=== PATIENT | female | born 1985 | race Caucasian/White ===

== ENCOUNTER 2016-11-26 00:31 | Inpatient (IN) | payer MEDICAID, OTHER ==
[~2016-11-26] VITALS: Ht 154.9 cm; Wt 55.0 kg
[2016-11-26] MEDS ORDERED: ONDANSETRON 4 MG INJ IV STA (01:06)
[2016-11-26] MEDS ORDERED: morphine 4 MG/ML VIAL IV STA (01:06)
--- NOTE | 2016-11-26 01:30 | ERA ---
ER Documentation Chief Complaint Date/Time DATE: 11/26/16 TIME: 01:29 Chief Complaint Tx from [facility]: cholecystitis, c/o AP, [place] HPI This is a 31-year-old female transferred from the [facility]. Patient diagnosed cholecystitis. She has had right upper quadrant abdominal pain for the past 2 days. Associated nausea vomiting. 2 episodes of vomiting which nonbilious. No fevers no chills. No other current complaints ROS All systems reviewed and are negative except as per history of present illness. Medications Home Meds No Active Prescriptions or Reported Meds Allergies Allergies: Coded Allergies: No Known Allergy (Unverified , 11/26/16) PMhx/Soc History of Surgery: No Anesthesia Reaction: No Hx Neurological Disorder: No Hx Respiratory Disorders: No Hx Cardiac Disorders: No Hx Psychiatric Problems: No Hx Miscellaneous Medical Probl: No Hx Alcohol Use: No Hx Substance Use: No Hx Tobacco Use: No Smoking Status: Never smoker Physical Exam Vitals Vital Signs Date Time Temp Pulse Resp B/P Pulse Ox O2 Delivery O2 Flow Rate FiO2 11/26/16 00:38 99.2 62 18 110/65 99 Physical Exam Const: [] Head: Atraumatic Eyes: Normal Conjunctiva ENT: Normal External Ears, Nose and Mouth. Neck: Full range of motion..~ No meningismus. Resp: Clear to auscultation bilaterally Cardio: Regular rate and rhythm, no murmurs Abd: Soft, non tender, non distended. Normal bowel sounds Skin: No petechiae or rashes Back: No midline or flank tenderness Ext: No cyanosis, or edema Neur: Awake and alert Psych: Normal Mood and Affect Results 24 hrs Current Medications Medications (Trade) Dose Ordered Sig/Alvin Route PRN Reason Start Time Stop Time Status Last Admin Dose Admin Ondansetron HCl (Zofran Inj) 4 mg ONCE STAT IV 11/26/16 01:06 11/26/16 01:11 DC 11/26/16 01:12 Morphine Sulfate (morphine) 4 mg ONCE STAT IV 11/26/16 01:06 11/26/16 01:11 DC 11/26/16 01:12 Procedures/MDM Medical decision-makin-year-old female with acute cholecystitis. Patient was admitted to hospitalist. Departure Diagnosis: Primary Impression: Abdominal pain Qualified Code: R10.11 - Right upper quadrant abdominal pain Additional Impression: Acute cholecystitis Condition: Serious RODRIGUE HURD November 26, 2016 01:30
[2016-11-26] MEDS ORDERED: HYDROmorphONE 1 MG/ML SYG IV PRN ×2 (02:30→05:30)
[2016-11-26] MEDS ORDERED: PIPER-TAZO 3.375 GM IV (PMX) 100 ML IVPB ONE (02:30)
[2016-11-26] MEDS: SOD CHLORIDE 0.9% 1,000 ML IV SCH ×2 (05:17→18:00)
[2016-11-26] MEDS ORDERED: HYDROmorphONE 1 MG/ML SYG IV STA ×2 (05:24→09:41)
[2016-11-26] MEDS ORDERED: NACL 0.9% 3 ML SYG IV SCH (05:30)
[2016-11-26 05:51] LABS: ADD SCAN DIFF NO
[2016-11-26 06:05] LABS: BASOPHIL # 0.1 10^3/ul (0.0-0.1); BASOPHILS % 0.3 % (0.0-2.0); EOSINOPHILS # 0.1 10^3/ul (0.0-0.5); EOSINOPHILS % 0.3 % (0.0-7.0); HEMATOCRIT 38.3 % (37.0-47.0); HEMOGLOBIN 12.6 g/dl (12.0-16.0); LYMPHOCYTES # 3.5 10^3/ul (0.8-2.9); LYMPHOCYTES % 24.5 % (15.0-51.0); MEAN CORPUSCULAR HEMOGLOBIN 28.8 pg (29.0-33.0); MEAN CORPUSCULAR HGB CONC 32.9 g/dl (32.0-37.0); MEAN CORPUSCULAR VOLUME 87.6 fl (82.0-101.0); MONOCYTE # 1.1 10^3/ul (0.3-0.9); MONOCYTES % 7.8 % (0.0-11.0); NEUTROPHIL # 9.5 10^3/ul (1.6-7.5); NEUTROPHILS % 66.8 % (39.0-77.0); PLATELET COUNT 193 10^3/UL (140-415); RED BLOOD COUNT 4.37 10^6/ul (4.20-5.40); RED CELL DISTRIBUTION WIDTH 13.2 % (11.5-14.5); WHITE BLOOD COUNT 14.3 10^3/ul (4.8-10.8)
[2016-11-26 06:12] LABS: INR 1.05; PROTIME 13.7 Sec (12.2-14.2); PT RATIO 1.1
[2016-11-26 06:26] LABS: PARTIAL THROMBOPLASTIN TIME 29.3 Sec (25.0-35.0)
[2016-11-26 06:33] LABS: ALBUMIN 4.1 g/dl (3.3-4.9)
[2016-11-26 06:34] LABS: POTASSIUM 3.5 mmol/L (3.5-5.1)
[2016-11-26 06:36] LABS: ALBUMIN/GLOBULIN RATIO 1.46; BILIRUBIN,INDIRECT 0.8 mg/dl (0-1.1); BILIRUBIN,TOTAL 0.8 mg/dl (0.2-1.3); CREATININE 0.66 mg/dl (0.44-1.00); TOTAL PROTEIN 6.9 g/dl (6.1-8.1)
[2016-11-26 06:37] LABS: CALCIUM 9.2 mg/dl (8.4-10.2)
--- NOTE | 2016-11-26 06:46 | HP ---
Date/Time of Note Date/Time of Note DATE: 11/26/16 TIME: 06:26 Assessment/Plan VTE Prophylaxis VTE Prophylaxis Intervention: SCD's Lines/Catheters IV [facility]ter [facility] (from [facility] Peripheral IV Assessment/Plan Chief Complaint/Hosp Course This is a 31-year-old female being admitted to [facility] floor: #1 acute cholecystitis: As per ED physician from outside facility ultrasound positive for acute cholecystitis, white blood cell count 14 continue to follow, patient currently n.p.o., IV fluids at 100 cc an hour of normal saline, Zosyn 3.375 IV every 6 hours, Dilaudid 0.5 mg every 4 hours as needed pain, consult general surgery. 2 DVT and GI prophylaxis, SCDs, H2 marcy Problems: HPI/ROS Admit Date/Time Admit Date/Time 11/25/2016 Hx of Present Illness This is a 31-year-old female transferred from [facility] She has had right upper quadrant abdominal pain for the past 2 days. Associated nausea vomiting. 2 episodes of vomiting which nonbilious. No fevers no chills. She states the pain is a stabbing pain 10 out of 10 gallbladder ultrasound as per the ED physician Dr. Cooper showed gallstones and gallbladder wall thickening. Patient was diagnosed with acute cholecystitis and subsequently transferred to [facility]. Currently patient is comfortable after having pain medications. Palpation of the right upper quadrant though does elicit pain. Allergies: NKDA Medications: None ROS Const: Negative for fever, positive for nausea vomiting Eyes : No pain discharge or redness or change in visual acuity ENT: No pain, sore throat, congestion, congestion, dysphagia or discharge Respiratory: No shortness of breath, cough, sputum, wheezing, or pleuritic pain Cardiovascular: No chest pain, palpitation, PND, or edema GI : As stated above in the HPI, otherwise negative Genitourinary: No dysuria, hematuria, flank pain , discharge or CVA tenderness Musculoskeletal: No joint pain, back pain, neck pain, restricted range of motion in neck or joints Skin: No rash, bruising or hives Neuro: No headache, dizziness, syncope, seizure, focal weakness Endocrine: No polyuria, polydipsia, temperature intolerance Psych: No hallucination, depression, anxiety or suicidal ideation PMH/Family/Social Past Medical History Medical History: no pertinent history Past Surgical History Tubal ligation 08/2016 Family History Significant Family History: cancer (Breast cancer in her aunt and grandmother) Social History Alcohol Use: none Smoking Status: Never smoker Drug Use: none Exam/Review of Systems Vital Signs Vitals Vital Signs Date Time Temp Pulse Resp B/P Pulse Ox O2 Delivery O2 Flow Rate FiO2 11/26/16 04:59 56 16 108/71 100 Room Air 11/26/16 02:15 98.8 Exam Exam General: The patient is well-developed, well-nourished woman in no acute The patient is alert oriented -3 HEENT: Atraumatic, normocephalic. The pupils are equal, round and reactive. Extraocular motor are intact Neck: Supple with full range of motion. No rigidity or meningismus Chest: Nontender Lungs: Clear to auscultation bilaterally no crackles rales or wheezing Heart: Normal S1-S2, Regular rhythm and rate. No murmur, S3, or S4 Abdomen: Soft, tender to palpation of the right upper quadrant (positive Holly sign), positive bowel sounds Extremities: Normal to inspection, no edema no cyanosis Neurologic: Normal mental status, speech normal, cranial nerves II through XII are intact, motor and sensory are intact, no focal weakness Labs Result Diagram: 11/26/16 0525 Medications Medications Current Medications Hydromorphone HCl 0.5 mg 0.5 mg Q4 PRN IV PAIN LEVEL 7-10 Last administered on 11/26/16 02:26; Admin Dose 0.5 MG; Start 11/26/16 at 02:30 Sodium Chloride (NS) 1,000 ml @ 100 mls/hr Q10H IV Last administered on 05:17; Admin Dose 100 MLS/HR; Start 11/26/16 at 05:03 Ondansetron HCl (Zofran Inj) 4 mg Q6H PRN IV NAUSEA AND/OR VOMITING; Start 11/26 at 05:30 Hydromorphone HCl (Dilaudid) 0.5 mg Q4H PRN IV SEVERE PAIN LEVEL 7-10; Start at 05:30 Famotidine 20 mg 20 mg Q12 IV ; Start 11/26/16 at 09:00 Piperacillin Sod/ Tazobactam Sod (Zosyn 3.375gm/ 100 ml (Pmx)) 100 ml @ 200 mls /hr Q6 IVPB ; Start 11/26/16 at 07:00 MARCOS HARRELL November 26, 2016 06:36
[2016-11-26] MEDS: PIPER-TAZO 3.375 GM IV (PMX) 100 ML IVPB SCH ×3 (07:29→18:03)
[2016-11-26] MEDS: HYDROmorphONE 1 MG/ML SYG IV PRN ×4 (07:31→22:02)
[2016-11-26] MEDS: FAMOTIDINE 20 MG INJ IV SCH ×2 (09:05→20:39)
--- NOTE | 2016-11-26 09:52 | CONS ---
Date/Time of Note Date/Time of Note DATE: 11/26/16 TIME: 09:52 Assessment/Plan Assessment/Plan Chief Complaint/Hosp Course 31F with right upper quadrant abdominal pain * No evidence of cholelithiasis or acute cholecystitis on ultrasound * 5mm polyp likely not cause of patient's symptoms. Can continue to monitor for now. * Differential diagnosis includes Gastroenteritis, Hepatitis, Gastritis, Peptic Ulcer Disease, etc. * Monitor labs * Continue NPO, IVF Hydration * Check Hepatitis Panel * Consider GI consult * Continue observation. If symptoms don't improve then recommend HIDA with CCK vs. CT Scan The above was discussed with the patient and primary care team. Further recommendations will be made based on clinical course. Problems: Consultation Date/Type/Reason Admit Date/Time 11/25/2016 Date of Consultation: November 26, 2016 Type of Consultation: GENERAL SURGERY Reason for Consultation ABDOMINAL PAIN Hx of Present Illness The patient is an otherwise healthy 31F who was transferred from [facility] where she presented with abdominal pain of 1 days duration. She describes the pain as being located in the right upper quadrant. It has been associated with multiple episodes of nausea and non-bilious emesis. She also reports diarrhea. There has been no fever/chills. She denies any prior episodes of similar pain in the past. A 14-point review of systems was conducted and negative except for HPI. Past Medical History Medical History: no pertinent history Past Surgical History Tubal Ligation Social History Alcohol Use: none Smoking Status: Never smoker Drug Use: none Exam/Review of Systems Vital Signs Vitals Vital Signs Date Time Temp Pulse Resp B/P Pulse Ox O2 Delivery O2 Flow Rate FiO2 11/26/16 06:30 98.3 62 16 114/68 100 Room Air Exam GENERAL: Awake, alert, oriented x 3. No acute distress. SKIN: No jaundice HEENT: No scleral icterus NECK: supple without JVD CARDIOVASCULAR: S1S2, regular rate and rhythm RESPIRATORY: clear to auscultation bilaterally ABDOMEN: soft, non-distended, bowel sounds present. Right upper quadrant tenderness to palpation without rebound or guarding. EXTREMITIES: no cyanosis, edema or clubbing NEUROLOGICAL: grossly intact Results Result Diagram: 11/26/16 0525 11/26/16 0525 Results 24 hrs Laboratory Tests Test 11/26/16 05:25 White Blood Count 14.3 H Red Blood Count 4.37 Hemoglobin 12.6 Hematocrit 38.3 Mean Corpuscular Volume 87.6 Mean Corpuscular Hemoglobin 28.8 L Mean Corpuscular Hemoglobin Concent 32.9 Red Cell Distribution Width 13.2 Platelet Count 193 Mean Platelet Volume 11.0 H Neutrophils % 66.8 Lymphocytes % 24.5 Monocytes % 7.8 Eosinophils % 0.3 Basophils % 0.3 Nucleated Red Blood Cells % 0.0 Neutrophils # 9.5 H Lymphocytes # 3.5 H Monocytes # 1.1 H Eosinophils # 0.1 Basophils # 0.1 Nucleated Red Blood Cells # 0.0 Prothrombin Time 13.7 Prothrombin Time Ratio 1.1 INR International Normalized Ratio 1.05 Activated Partial Thromboplast Time 29.3 Sodium Level 141 Potassium Level 3.5 Chloride Level 105 Carbon Dioxide Level 24 Anion Gap 16 Blood Urea Nitrogen 15 Creatinine 0.66 Glucose Level 100 Calcium Level 9.2 Total Bilirubin 0.8 Direct Bilirubin 0.00 Indirect Bilirubin 0.8 Aspartate Amino Transf (AST/SGOT) 33 Alanine Aminotransferase (ALT/SGPT) 36 Alkaline Phosphatase 50 Total Protein 6.9 Albumin 4.1 Globulin 2.80 Albumin/Globulin Ratio 1.46 Lipase 39 Medications Medications Current Medications Sodium Chloride (NS) 1,000 ml @ 100 mls/hr Q10H IV Last administered on 05:17; Admin Dose 100 MLS/HR; Start 11/26/16 at 05:03 Ondansetron HCl (Zofran Inj) 4 mg Q6H PRN IV NAUSEA AND/OR VOMITING; Start 11/26 at 05:30 Famotidine 20 mg 20 mg Q12 IV Last administered on 11/26/16 09:05; Admin Dose 20 MG; Start 11/26/16 at 09:00 Piperacillin Sod/ Tazobactam Sod (Zosyn 3.375gm/ 100 ml (Pmx)) 100 ml @ 200 mls /hr Q6 IVPB Last administered on 11/26/16 07:29; Admin Dose 200 MLS/HR; Start 11/26/16 at 07:00 Hydromorphone HCl (Dilaudid) 0.5 mg Q4H PRN IV PAIN LEVEL 7-10 Last administered on 11/26/16 07:31; Admin Dose 0.5 MG; Start 11/26/16 at 07:30 Procedures Procedures PROCEDURE: Ultrasound of the abdomen and retroperitoneum. CLINICAL INDICATION: Abdominal pain TECHNIQUE: Multiple real-time longitudinal and transverse images of the abdomen were acquired utilizing a curved array transducer. Images were reviewed on a high-resolution PACS workstation. COMPARISON: Abdominal ultrasound 03/27/2014 FINDINGS: The liver is normal in size, shape, and echogenicity. No hepatic masses are seen. There is no evidence of intra or extrahepatic ductal dilatation. The common bile duct measures 5.1 mm in maximal dimension. No gallstones or gallbladder wall thickening is seen. There is a 5 mm nonshadowing, nonmobile echogenic focus arising from the gallbladder wall consistent with a gallbladder polyp. An adherent sludge ball could also potentially have this appearance. The visualized portions of the pancreas are unremarkable with obscuration of the tail of the pancreas. No free fluid is identified. The spleen is normal and measures 11.9 cm. The kidneys are without calcifications or hydronephrosis. The right kidney measures 11.3 cm, and the left kidney measures 11.9 cm. The visualized portions of the aorta and inferior vena cava are unremarkable. IMPRESSION: 1. 5 mm gallbladder polyp. Recommend linear follow-up abdominal ultrasound. 2. Otherwise unremarkable ultrasound of the abdomen and retroperitoneum. RPTAT: KK .Cristian Bowen MD, Date Time Electronically viewed and signed by .Cristian Bowen MD, MD on 2016 10:45 .B/ CC: SUDARSHAN JIMENEZ MD, MICHAEL A. MD November 26, 2016 09:52
--- NOTE | 2016-11-26 10:46 | RADRPT ---
PROCEDURE: Ultrasound of the abdomen and retroperitoneum. CLINICAL INDICATION: Abdominal pain TECHNIQUE: Multiple real-time longitudinal and transverse images of the abdomen were acquired util izing a curved array transducer. Images were reviewed on a high-resolution PACS workstation. COMPARISON: Abdominal ultrasound 03/27/2014 FINDINGS: The liver is normal in size, shape, and echogenicity. No hepatic masses are seen. There is no evide nce of intra or extrahepatic ductal dilatation. The common bile duct measures 5.1 mm in maximal dim ension. No gallstones or gallbladder wall thickening is seen. There is a 5 mm nonshadowing, nonmobi le echogenic focus arising from the gallbladder wall consistent with a gallbladder polyp. An adhere nt sludge ball could also potentially have this appearance. The visualized portions of the pancreas are unremarkable with obscuration of the tail of the pancrea s. No free fluid is identified. The spleen is normal and measures 11.9 cm. The kidneys are without calcifications or hydronephrosis. The right kidney measures 11.3 cm, and t he left kidney measures 11.9 cm. The visualized portions of the aorta and inferior vena cava are unremarkable. IMPRESSION: 1. 5 mm gallbladder polyp. Recommend linear follow-up abdominal ultrasound. 2. Otherwise unremarkable ultrasound of the abdomen and retroperitoneum. RPTAT: KK .Cristian Bowen MD, MD Date Time Electronically viewed and signed by .Cristian Bowen MD, MD on 11/26/2016 10:45 .B/
[2016-11-26 11:10] VITALS: TEMP 98.8
[2016-11-26 14:21] LABS: HAAIG REFLEX REFLEX FILED
[2016-11-26 15:17] LABS: HEPATITIS B CORE ANTIBODY NEGATIVE (NEGATIVE)
[2016-11-26] MEDS: ONDANSETRON 4 MG INJ IV PRN (17:22)
[2016-11-26 18:11] VITALS: BP 141/79; PULSE 63
[2016-11-26 18:18] VITALS: Ht 154.9 cm; Wt 55.0 kg
[2016-11-26 20:06] VITALS: BP 134/72; RESP 20
[2016-11-27] MEDS: PIPER-TAZO 3.375 GM IV (PMX) 100 ML IVPB SCH ×5 (00:28→23:30)
[2016-11-27] MEDS: ONDANSETRON 4 MG INJ IV PRN ×4 (01:33→21:51)
[2016-11-27] MEDS: HYDROmorphONE 1 MG/ML SYG IV PRN ×5 (03:01→20:15)
[2016-11-27] MEDS: SOD CHLORIDE 0.9% 1,000 ML IV SCH (03:01)
[2016-11-27 05:29] LABS: ADD SCAN DIFF NO
[2016-11-27 05:50] LABS: ALBUMIN 3.5 g/dl (3.3-4.9); MAGNESIUM 1.9 mg/dl (1.7-2.5); PHOSPHORUS 3.4 mg/dl (2.5-4.9); POTASSIUM 3.6 mmol/L (3.5-5.1)
[2016-11-27 05:52] LABS: BILIRUBIN,INDIRECT 0.5 mg/dl (0-1.1); BILIRUBIN,TOTAL 0.5 mg/dl (0.2-1.3); CREATININE 0.66 mg/dl (0.44-1.00)
[2016-11-27 05:53] LABS: ALBUMIN/GLOBULIN RATIO 1.45; CALCIUM 8.6 mg/dl (8.4-10.2); TOTAL PROTEIN 5.9 g/dl (6.1-8.1)
[2016-11-27 06:21] LABS: THYROID STIMULATING HORMONE 0.155 MIU/L (0.465-4.680)
[2016-11-27 06:22] LABS: BASOPHIL # 0.1 10^3/ul (0.0-0.1); BASOPHILS % 0.6 % (0.0-2.0); EOSINOPHILS # 0.1 10^3/ul (0.0-0.5); EOSINOPHILS % 1.1 % (0.0-7.0); HEMATOCRIT 36.3 % (37.0-47.0); HEMOGLOBIN 11.8 g/dl (12.0-16.0); LYMPHOCYTES # 2.9 10^3/ul (0.8-2.9); LYMPHOCYTES % 30.5 % (15.0-51.0); MEAN CORPUSCULAR HEMOGLOBIN 29.1 pg (29.0-33.0); MEAN CORPUSCULAR HGB CONC 32.5 g/dl (32.0-37.0); MEAN CORPUSCULAR VOLUME 89.4 fl (82.0-101.0); MEAN PLATELET VOLUME 11.7 fl (7.4-10.4); MONOCYTE # 0.6 10^3/ul (0.3-0.9); MONOCYTES % 6.2 % (0.0-11.0); NEUTROPHIL # 5.8 10^3/ul (1.6-7.5); NEUTROPHILS % 61.2 % (39.0-77.0); PLATELET COUNT 153 10^3/UL (140-415); RED BLOOD COUNT 4.06 10^6/ul (4.20-5.40); WHITE BLOOD COUNT 9.4 10^3/ul (4.8-10.8)
[2016-11-27 08:04] VITALS: BP 115/69; RESP 18
[2016-11-27] MEDS: FAMOTIDINE 20 MG INJ IV SCH (08:30)
[2016-11-27] MEDS: HYDROCODONE/APAP (5/325) TAB PO PRN ×2 (08:43→19:23)
[2016-11-27] MEDS: D5W-0.45 NACL + KCL 10 MEQ 1,000 ML IV SCH ×2 (08:44→17:34)
--- NOTE | 2016-11-27 11:39 | PN ---
DATE: 11/27/2016 Time of evaluation is 10:45 a.m. SUBJECTIVE DATA: The patient in excruciating pain. Had an episode of diarrhea with some fresh blood in it. OBJECTIVE DATA: VITAL SIGNS: Temperature 98.4, pulse rate 51, respiratory rate 18, blood pressure 115/69, oxygen saturation 98% on room air. GENERAL: This is an adequately built 31-year-old female sitting in bed in a position because of pain. HEENT: Normocephalic and atraumatic. Eyes: Anicteric sclerae. Conjunctivae clear. ENT: Nasal septum is midline. Oral mucosa is dry. NECK: Supple. No JVD noticed. RESPIRATORY: Bilaterally clear to auscultation. No adventitious breath sounds heard. No use of accessory muscles of respiration. CARDIAC: Regular rate and rhythm. No murmurs. ABDOMEN: Soft. No guarding. Diffuse tenderness. Bowel sounds are positive in all 4 quadrants. GENITOURINARY: Deferred. EXTREMITIES: No cyanosis, no clubbing, no edema. Peripheral pulses are palpable. NEUROLOGIC: The patient is awake, alert and oriented. Cranial nerves are grossly intact. LABORATORY AND DIAGNOSTIC DATA: WBC 9.4, hemoglobin 11.8, hematocrit 36.3, platelet count 153. Sodium 142, potassium 3.6, chloride 107, carbon dioxide 25 , anion gap 15, BUN 15, creatinine 0.66, glucose 69, calcium 8.2, phosphorus 3.4 , magnesium 1.9. Hepatitis panel negative. ASSESSMENT AND PLAN: 1. Acute abdominal pain. Etiology unclear. Abdominal ultrasound showing a 5 mm polyp. The patient is being followed by General Surgery. Will order a CT scan of the abdomen and pelvis with p.o. and IV contrast. I had a further discussion with the surgeon. We will also involve gastroenterology on the case. The patient will be continued on pain control. 2. Hematochezia. Etiology unclear. Hemoglobin and hematocrit stable. We will start the patient on proton pump inhibitors. We will involve gastroenterology on the case. We will obtain a stool for OB on this patient. 3. Fluid, electrolytes and nutrition. The patient will be continued on IV fluids. However, IV fluids will be changed to dextrose containing fluids because of underlying hypoglycemia. 4. Deep vein thrombosis prophylaxis with bilateral sequential compression devices. 5. Gastrointestinal prophylaxis. Proton pump inhibitors. 6. Plan. Obtain a CT scan of the abdomen and pelvis with oral and intravenous contrast. Call gastroenterology consult. [facility] pain medicine. Plan of care was explained to the patient and the patient's sister over the phone. The case was discussed with Dr. Bill. The case was discussed with Dr. Jimenez. ROSEMARIE BILL MD AM/NTS Conf#: [id number] DID#: [id number] CC: SUDARSHAN JIMENEZ MD;*EndCC* MTDD
[2016-11-27 12:53] LABS: ADD UMIC YES; URINE BILIRUBIN (Dip) NEGATIVE (NEGATIVE); URINE BLOOD (Dip) 3+ (NEGATIVE); URINE COLOR LT. YELLOW (YELLOW); URINE GLUCOSE (Dip) NEGATIVE (NEGATIVE); URINE KETONES (Dip) 3+ (NEGATIVE); URINE LEUKOCYTE ESTERASE (Dip) NEGATIVE (NEGATIVE); URINE NITRITE (Dip) NEGATIVE (NEGATIVE); URINE TOTAL PROTEIN (Dip) TRACE (NEGATIVE); URINE UROBILINOGEN (Dip) 0.2 E.U./dL (0.1-1.0)
[2016-11-27] MEDS ORDERED: BARIUM SULF 2% 450 ML BTL (BERRY SMOOTHIE) PO SCH (13:00)
[2016-11-27 13:09] LABS: BACTERIA,URINE FEW; URINE RBCS >50 /HPF (0)
--- NOTE | 2016-11-27 13:27 | PN ---
Date/Time of Note Date/Time of Note DATE: 11/27/16 TIME: 13:22 Assessment/Plan Lines/Catheters IV Catheter Type (from [facility]): Peripheral IV Assessment/Plan Assessment/Plan 31F with right upper quadrant abdominal pain * No evidence of cholelithiasis or acute cholecystitis on ultrasound * 5mm polyp likely not cause of patient's symptoms. Can continue to monitor for now. * Differential diagnosis includes Gastroenteritis, Hepatitis, Gastritis, Peptic Ulcer Disease, etc. * Leukocytosis improved. Hemoglobin relatively stable. * Continue NPO, IVF Hydration * Hepatitis Panel negative. C. difficile negative. * Patient still with significant pain and now with new onset blood in stool * CT scan abdomen and pelvis with p.o. and IV contrast ordered. Will follow up. * Recommend GI consult for possible EGD/colonoscopy The above was discussed with the patient, nurse, gastroenterology and primary care team. Further recommendations will be made based on clinical course. Subjective 24 Hr Interval Summary Still with significant pain. Reports some blood in the stool this morning. Pain slightly better with increase in pain medication. Afebrile. Exam/Review of Systems Vital Signs Vitals Vital Signs Date Time Temp Pulse Resp B/P Pulse Ox O2 Delivery O2 Flow Rate FiO2 11/27/16 08:04 98.4 51 18 115/69 98 11/26/16 18:11 Room Air Intake and Output 11/26/16 11/26/16 11/27/16 15:00 23:00 07:00 Intake Total 1200 ml 950 ml 1200 ml Balance 1200 ml 950 ml 1200 ml Exam Free Text/Dictation GENERAL: Awake, alert, oriented x 3. No acute distress. SKIN: No jaundice HEENT: No scleral icterus CARDIOVASCULAR: S1S2, regular rate and rhythm RESPIRATORY: clear to auscultation bilaterally ABDOMEN: soft, non-distended, bowel sounds present. Tenderness to palpation in the epigastrium and right upper quadrant without any rebound or guarding RECTAL: Small internal hemorrhoids, good tone, no gross blood on finger. No palpable masses EXTREMITIES: no cyanosis, edema or clubbing Results Result Diagram: 11/27/16 0510 11/27/16 0510 SUDARSHAN JIMENEZ MD November 27, 2016 13:27
[2016-11-27 13:32] LABS: BARBITURATES NEGATIVE (NEGATIVE); BENZODIAZEPINES NEGATIVE (NEGATIVE); CANNABINOIDS POSITIVE (NEGATIVE); COCAINE NEGATIVE (NEGATIVE)
[2016-11-27 13:33] LABS: OPIATES POSITIVE (NEGATIVE)
--- NOTE | 2016-11-27 14:30 | CONS ---
Date/Time of Note Date/Time of Note DATE: 11/27/16 TIME: 14:14 Assessment/Plan Assessment/Plan Additional Assessment/Plan Assessment * Abdominal pain * PUD vs GERD vs Cholelithiasis * Hematochezia * Lower GI bleed vs upper GI bleed Plan * CT abdomen/pelvis * EGD/colonoscopy pending review of CT on 11/29/16. Risks and benefits explained to patient and agreed with the procedure * PPI * monitor Hand H q 6 and transfuse as ordered Consultation Date/Type/Reason Admit Date/Time 11/25/2016 Date of Consultation: November 27, 2016 Type of Consultation: Gastroenterology Reason for Consultation abdominal pain/hematochezia Hx of Present Illness 31 year old female with no significant medical hisytory was transferred to our hospital from [facility] because of abdominal pain.Condition started 1day prior to admission as sharp abdominal pain along epigastric and right upper quadrant area with associated nausea and vomiting.Denies any fever ,cough ,hematemesis nor melena.Subsequent ultrasound at [facility] revealed cholecystitis,however due to insurance issues patient was transferred . Emergency room ,still complains of right upper quadrant pain radiating to the back,ultrasound revealed 5 mm gallbladder polyp. Recommend linear follow-up abdominal ultrasound.Otherwise unremarkable ultrasound of the abdomen and retroperitoneum..Elevated WBC 14,3. On examination patient have right upper quadrant pain with radiation to the back with associated hematochezia 1/3 glass per bout x 2 episodes.Present hemoglobin is 9.4.Still awaiting CT scan abdomen/pelvis Constitutional: improved, no complaints Eyes: no complaints ENT: no complaints Respiratory: no complaints Cardiovascular: no complaints Gastrointestinal: blood, pain, vomiting Genitourinary: no complaints Musculoskeletal: no complaints Skin: no complaints Neurologic: no complaints Endocrine: no complaints Lymphatic: no complaints Psychological: nl mood/affect, no complaints Immunologic: no complaints Past Medical History Medical History: no pertinent history Past Surgical History Past Surgical Hx: no surgical history Family History Significant Family History: no pertinent family hx Social History Alcohol Use: none Smoking Status: Former smoker Drug Use: none Exam/Review of Systems Vital Signs Vitals Vital Signs Date Time Temp Pulse Resp B/P Pulse Ox O2 Delivery O2 Flow Rate FiO2 11/27/16 08:04 98.4 51 18 115/69 98 11/26/16 18:11 Room Air Intake and Output 11/26/16 11/26/16 11/27/16 15:00 23:00 07:00 Intake Total 1200 ml 950 ml 1200 ml Balance 1200 ml 950 ml 1200 ml Exam Constitutional: alert, oriented, well developed Psych: nl mood/affect Head: atraumatic, normocephalic Eyes: PERRL, nl conjunctiva, nl sclera ENMT: nl nasal mucosa & septum Neck: non-tender, supple Respiratory: clear to auscultation, normal air movement Cardiovascular: nl pulses, regular rate and rhythm Gastrointestinal: bowel sounds, soft, tender (right upper quadrant), No rebound or guarding Musculoskeletal: nl extremities to inspection, nl gait and stance Extremities: normal pulses Neurological: [employer] II-XII intact, nl mental status, nl speech, nl strength Skin: nl turgor, No rash or lesions Lymph: nl lymph nodes Results Result Diagram: 11/27/16 0510 11/27/16 0510 Results 24 hrs Laboratory Tests Test 11/27/16 05:10 11/27/16 11:50 11/27/16 13:30 White Blood Count 9.4 # Red Blood Count 4.06 L Hemoglobin 11.8 L Hematocrit 36.3 L Mean Corpuscular Volume 89.4 Mean Corpuscular Hemoglobin 29.1 Mean Corpuscular Hemoglobin Concent 32.5 Red Cell Distribution Width 13.0 Platelet Count 153 # Mean Platelet Volume 11.7 H Neutrophils % 61.2 Lymphocytes % 30.5 Monocytes % 6.2 Eosinophils % 1.1 Basophils % 0.6 Nucleated Red Blood Cells % 0.0 Neutrophils # 5.8 Lymphocytes # 2.9 Monocytes # 0.6 Eosinophils # 0.1 Basophils # 0.1 Nucleated Red Blood Cells # 0.0 Sodium Level 142 Potassium Level 3.6 Chloride Level 107 Carbon Dioxide Level 24 Anion Gap 15 Blood Urea Nitrogen 15 Creatinine 0.66 Glucose Level 69 #L Hemoglobin A1c 5.2 Calcium Level 8.6 Phosphorus Level 3.4 Magnesium Level 1.9 Total Bilirubin 0.5 Direct Bilirubin 0.00 Indirect Bilirubin 0.5 Aspartate Amino Transf (AST/SGOT) 44 Alanine Aminotransferase (ALT/SGPT) 36 Alkaline Phosphatase 43 Total Protein 5.9 #L Albumin 3.5 Globulin 2.40 Albumin/Globulin Ratio 1.45 Thyroid Stimulating Hormone (TSH) 0.155 L Free Thyroxine 0.99 Urine Color LT. YELLOW Urine Clarity CLEAR Urine pH 6.0 Urine Specific [place] 1.025 Urine Ketones 3+ H Urine Nitrite NEGATIVE Urine Bilirubin NEGATIVE Urine Urobilinogen 0.2 E.U./dL Urine Leukocyte Esterase NEGATIVE Urine Microscopic RBC >50 Urine Microscopic WBC 10-25 Urine Epithelial Cells FEW Urine Bacteria FEW Urine Yeast FEW Urine Hemoglobin 3+ H Urine Glucose NEGATIVE Urine Total Protein TRACE Urine Opiates Screen POSITIVE Urine Barbiturates NEGATIVE Urine Amphetamines Screen NEGATIVE Urine Benzodiazepines Screen NEGATIVE Urine Cocaine Screen NEGATIVE Urine Cannabinoids POSITIVE Stool Occult Blood POSITIVE Medications Medications Current Medications Ondansetron HCl 4 mg 4 mg Q6H PRN IV NAUSEA AND/OR VOMITING Last administered on 11/27/16 08:46; Admin Dose 4 MG; Start 11/26/16 at 05:30 Piperacillin Sod/ Tazobactam Sod 100 ml @ 200 mls/hr Q6 IVPB Last administered on 11/27/16 12:58; Admin Dose 200 MLS/HR; Start 11/26/16 at 07:00 Potassium Chloride/Dextrose/ Sod Cl (D5-1/2ns + KCl 10 Meq) 1,000 ml @ 100 mls/ hr Q10H IV Last administered on 11/27/16 08:44; Admin Dose 100 MLS/HR; Start at 07:30 Acetaminophen/ Hydrocodone Bitart ([place] (5/325)) 1 tab Q6H PRN PO pain Last administered on 11/27/16 08:43; Admin Dose 1 TAB; Start 11/27/16 at 08:39 Hydromorphone HCl (Dilaudid) 1 mg Q4H PRN IV PAIN Last administered on 11:36; Admin Dose 1 MG; Start 11/27/16 at 11:00 Pantoprazole (Protonix Iv) 40 mg BID@06,18 IV ; Start 11/27/16 at 18:00 VU JOHNS MD November 27, 2016 14:25
[2016-11-27] MEDS ORDERED: IOHEXOL 300MG/ML 150 ML BTL ONE (15:30)
[2016-11-27] MEDS ORDERED: SOD CHLORIDE 0.9% 100 ML ONE (15:30)
[2016-11-27] MEDS: PANTOPRAZOLE 40 MG INJ IV SCH (17:33)
--- NOTE | 2016-11-27 18:53 | RADRPT ---
PROCEDURE: CT Abdomen and Pelvis with IV contrast. CLINICAL INDICATION: Pain. TECHNIQUE: CT scan of the abdomen and pelvis was performed on a multidetector slice CT scanner. 95 cc of Omnipaque 300 intravenous contrast material was utilized. Sagittal and coronal reformatted im ages were obtained from the axial source images. Images were reviewed on a high-resolution PACS work station. Exam CTDlvol = 7 mGy and DLP = 379 Gy-cm. One of the following 3 dose reduction techniques were used: Automated exposure control; adjustment of the mA and/or kV according to patient size; or use of iterative reconstruction technique. COMPARISON: Right upper quadrant ultrasound 11/26/2016, abdominal pelvic US 03/27/2014. FINDINGS: There is mild abdominal and pelvic free fluid. There is no obstruction or ileus. The appendix is n ot visualized. There is no secondary evidence for appendicitis.. There is no evidence for diverticu litis. The liver is mildly enlarged at 17.9 cm length.. Liver is mildly heterogeneous with evidence for pe riportal edema. Gallbladder is mildly distended. There is mild pericholecystic fluid. No calcifie d gallstones or definite gallbladder wall thickening is identified. The distal common bile duct appe ars prominent and 7 mm diameter. Component of intrahepatic biliary dilatation cannot be excluded. P ancreas is normal in appearance. The spleen is enlarged at 14 cm length... There are no adrenal mass es. The aorta is normal caliber.. Kidneys are normal in appearance without hydronephrosis, mass or calculus. There is no perinephric c ollection. Ureters are of normal caliber and without evidence for an obstructing calculus The urinar y bladder is normal in appearance.. Uterus is normal appearance. Ovaries are not well visualized. Limited evaluation lung bases is unremarkable. There are mild degenerate changes of the lower lumbar spine. IMPRESSION: 1. Mild abdominal and pelvic free fluid. 2. Mildly distended gallbladder. Pericholecystic fluid. No calcified gallstones or definite gallb ladder wall thickening to suggest acute cholecystitis. The distal common bile duct is dilated at 7 mm consistent with a distal obstruction. No calcified intraductal stone is identified. 3. Hepatosplenomegaly. Liver is mildly heterogeneous with evidence for. Portal edema, which is no nspecific and can be seen with hepatitis. 4. Appendix not distinctly visualized. No focal right lower quadrant changes to suggest acute appe ndicitis. 5. Gross unremarkable uterus. Ovaries not well characterized. 6. No obstructive uropathy. RPTAT: HMVK .Delfin Webb MD, MD Date Time Electronically viewed and signed by .Delfin Webb MD, on 11/27/2016 18:52 .K/
[2016-11-27 19:45] VITALS: BP 148/81; RESP 18
[2016-11-28] MEDS: HYDROmorphONE 2 MG/ML SYG IV PRN ×6 (00:07→20:15)
[2016-11-28] MEDS: HYDROCODONE/APAP (5/325) TAB PO PRN ×2 (02:00→10:11)
[2016-11-28 05:59] LABS: ADD SCAN DIFF NO
[2016-11-28 06:07] LABS: BASOPHILS % 0.5 % (0.0-2.0); EOSINOPHILS # 0.1 10^3/ul (0.0-0.5); EOSINOPHILS % 1.6 % (0.0-7.0); HEMATOCRIT 34.9 % (37.0-47.0); HEMOGLOBIN 11.8 g/dl (12.0-16.0); LYMPHOCYTES # 2.7 10^3/ul (0.8-2.9); LYMPHOCYTES % 33.8 % (15.0-51.0); MEAN CORPUSCULAR HEMOGLOBIN 29.6 pg (29.0-33.0); MEAN CORPUSCULAR HGB CONC 33.8 g/dl (32.0-37.0); MEAN CORPUSCULAR VOLUME 87.5 fl (82.0-101.0); MEAN PLATELET VOLUME 10.9 fl (7.4-10.4); MONOCYTE # 0.6 10^3/ul (0.3-0.9); MONOCYTES % 7.6 % (0.0-11.0); NEUTROPHIL # 4.4 10^3/ul (1.6-7.5); NEUTROPHILS % 56.1 % (39.0-77.0); PLATELET COUNT 168 10^3/UL (140-415); RED BLOOD COUNT 3.99 10^6/ul (4.20-5.40); RED CELL DISTRIBUTION WIDTH 12.4 % (11.5-14.5); WHITE BLOOD COUNT 7.9 10^3/ul (4.8-10.8)
[2016-11-28] MEDS: PIPER-TAZO 3.375 GM IV (PMX) 100 ML IVPB SCH ×5 (06:15→23:27)
[2016-11-28] MEDS: PANTOPRAZOLE 40 MG INJ IV SCH ×2 (06:15→18:07)
[2016-11-28] MEDS: D5W-0.45 NACL + KCL 10 MEQ 1,000 ML IV SCH ×3 (06:21→23:27)
[2016-11-28 06:25] LABS: ALBUMIN 3.5 g/dl (3.3-4.9); MAGNESIUM 1.7 mg/dl (1.7-2.5); PHOSPHORUS 3.6 mg/dl (2.5-4.9)
[2016-11-28 06:26] LABS: POTASSIUM 3.4 mmol/L (3.5-5.1)
[2016-11-28 06:27] LABS: CREATININE 0.56 mg/dl (0.44-1.00)
[2016-11-28 06:28] LABS: ALBUMIN/GLOBULIN RATIO 1.34; BILIRUBIN,INDIRECT 0.4 mg/dl (0-1.1); BILIRUBIN,TOTAL 0.4 mg/dl (0.2-1.3); TOTAL PROTEIN 6.1 g/dl (6.1-8.1)
[2016-11-28 06:29] LABS: CALCIUM 8.2 mg/dl (8.4-10.2)
[2016-11-28] MEDS: ONDANSETRON 4 MG INJ IV PRN ×2 (07:41→18:22)
[2016-11-28 07:55] VITALS: BP 151/83; RESP 16
--- NOTE | 2016-11-28 09:39 | PN ---
Date/Time of Note Date/Time of Note DATE: 11/28/16 TIME: 09:34 Assessment/Plan Lines/Catheters IV Catheter Type (from [facility]): Saline Lock Jules in Place (from [facility]): No Assessment/Plan Assessment/Plan 31F with right upper quadrant abdominal pain * No evidence of cholelithiasis or acute cholecystitis on ultrasound * 5mm polyp likely not cause of patient's symptoms. Can continue to monitor for now. * Differential diagnosis includes Gastroenteritis, Hepatitis, Gastritis, Peptic Ulcer Disease, etc. * Leukocytosis improved. Hemoglobin stable. * Hepatitis Panel negative. C. difficile negative. * Patient still with significant pain and now with new onset blood in stool * CT scan images were reviewed. Hepatomegaly, splenomegaly. Periportal edema and inflammation. Likely hepatitis. ?Etiology. Gallbladder findings likely reactive to hepatitis. * Await EGD/colonoscopy The above was discussed with the patient, nurse, and primary care team. Further recommendations will be made based on clinical course. Subjective 24 Hr Interval Summary Still with right upper quadrant abdominal pain. Nausea, but no vomiting. Afebrile. Exam/Review of Systems Vital Signs Vitals Vital Signs Date Time Temp Pulse Resp B/P Pulse Ox O2 Delivery O2 Flow Rate FiO2 11/28/16 07:55 98.4 54 16 151/83 100 11/26/16 18:11 Room Air Intake and Output 11/27/16 11/27/16 11/28/16 15:00 23:00 07:00 Intake Total 100 ml 1100 ml 1200 ml Balance 100 ml 1100 ml 1200 ml Exam Free Text/Dictation GENERAL: Awake, alert, oriented x 3. No acute distress. SKIN: No jaundice HEENT: No scleral icterus CARDIOVASCULAR: S1S2, regular rate and rhythm RESPIRATORY: clear to auscultation bilaterally ABDOMEN: soft, non-distended, bowel sounds present. Tenderness to palpation in the epigastrium and right upper quadrant without any rebound or guarding EXTREMITIES: no cyanosis, edema or clubbing Results Result Diagram: 11/28/16 0540 11/28/16 0540 Procedures Procedures PROCEDURE: CT Abdomen and Pelvis with IV contrast. CLINICAL INDICATION: Pain. TECHNIQUE: CT scan of the abdomen and pelvis was performed on a multidetector slice CT scanner. 95 cc of Omnipaque 300 intravenous contrast material was utilized. Sagittal and coronal reformatted images were obtained from the axial source images. Images were reviewed on a high-resolution PACS workstation. Exam CTDlvol = 7 mGy and DLP = 379 Gy-cm. One of the following 3 dose reduction techniques were used: Automated exposure control; adjustment of the mA and/or kV according to patient size; or use of iterative reconstruction technique. COMPARISON: Right upper quadrant ultrasound 11/26/2016, abdominal pelvic US . FINDINGS: There is mild abdominal and pelvic free fluid. There is no obstruction or ileus. The appendix is not visualized. There is no secondary evidence for appendicitis.. There is no evidence for diverticulitis. The liver is mildly enlarged at 17.9 cm length.. Liver is mildly heterogeneous with evidence for periportal edema. Gallbladder is mildly distended. There is mild pericholecystic fluid. No calcified gallstones or definite gallbladder wall thickening is identified. The distal common bile duct appears prominent and 7 mm diameter. Component of intrahepatic biliary dilatation cannot be excluded. Pancreas is normal in appearance. The spleen is enlarged at 14 cm length... There are no adrenal masses. The aorta is normal caliber.. Kidneys are normal in appearance without hydronephrosis, mass or calculus. There is no perinephric collection. Ureters are of normal caliber and without evidence for an obstructing calculus The urinary bladder is normal in appearance.. Uterus is normal appearance. Ovaries are not well visualized. Limited evaluation lung bases is unremarkable. There are mild degenerate changes of the lower lumbar spine. IMPRESSION: 1. Mild abdominal and pelvic free fluid. 2. Mildly distended gallbladder. Pericholecystic fluid. No calcified gallstones or definite gallbladder wall thickening to suggest acute cholecystitis. The distal common bile duct is dilated at 7 mm consistent with a distal obstruction. No calcified intraductal stone is identified. 3. Hepatosplenomegaly. Liver is mildly heterogeneous with evidence for. Portal edema, which is nonspecific and can be seen with hepatitis. 4. Appendix not distinctly visualized. No focal right lower quadrant changes to suggest acute appendicitis. 5. Gross unremarkable uterus. Ovaries not well characterized. 6. No obstructive uropathy. RPTAT: HMVK .Delfin eWbb MD, MD Date Time Electronically viewed and signed by .Delfin Webb MD, on 11/27/2016 18:52 .K/ CC: ROSEMARIE GLORIA NP, MICHAEL A. MD November 28, 2016 09:39
--- NOTE | 2016-11-28 09:50 | PN ---
Date/Time of Note Date/Time of Note DATE: 11/28/16 TIME: 09:48 Assessment/Plan VTE Prophylaxis VTE Prophylaxis Intervention: SCD's Lines/Catheters IV C[facility]ter Type (from [facility]): Saline Lock Urinary Cath still in place: No Assessment/Plan Chief Complaint/Hosp Course 1. Acute abdominal pain. Etiology unclear. Abdominal CT scan showing mildly distended gallbladder with pericholecystic fluid but no evidence of stones or definite gallbladder wall thickening to suggest acute cholecystitis. The common bile duct is dilated to 7 mm consistent with a distal obstruction. The CT also showed hepatosplenomegaly and portal edema. Hepatitis B and C panel negative. Patient being evaluated for any underlying autoimmune hepatitis. 2. Hematochezia. The patient being followed by gastroenterology. Plan for esophagogastroduodenoscopy and colonoscopy 3. Fluid, electrolytes and nutrition. Continue IV fluids. Clear liquid diet if she can tolerate. 4. Deep vein thrombosis prophylaxis with bilateral sequential compression devices. 5. Gastrointestinal prophylaxis. Proton pump inhibitors. 6. Plan. Continue pain control. Continue empiric antibiotics. Await esophagogastroduodenoscopy and colonoscopy. Clear liquid diet if the patient can tolerate. Case discussed with Dr. Rodriguez. The case was also discussed with the surgeon on the case. Problems: Subjective 24 Hr Interval Summary Free Text/Dictation Continues to have abdominal pain. Getting pain medications almost around-the- clock. Exam/Review of Systems Vital Signs Vitals Vital Signs Date Time Temp Pulse Resp B/P Pulse Ox O2 Delivery O2 Flow Rate FiO2 11/28/16 07:55 98.4 54 16 151/83 100 11/26/16 18:11 Room Air Intake and Output 11/27/16 11/27/16 11/28/16 15:00 23:00 07:00 Intake Total 100 ml 1100 ml 1200 ml Balance 100 ml 1100 ml 1200 ml Exam GENERAL: This is an adequately built 31-year-old female sitting in bed in a position because of pain. HEENT: Normocephalic and atraumatic. Eyes: Anicteric sclerae. Conjunctivae clear. ENT: Nasal septum is midline. Oral mucosa is dry. NECK: Supple. No JVD noticed. RESPIRATORY: Bilaterally clear to auscultation. No adventitious breath sounds heard. No use of accessory muscles of respiration. CARDIAC: Regular rate and rhythm. No murmurs. ABDOMEN: Soft. No guarding. Diffuse tendernes. Bowel sounds are positive in all 4 quadrants. GENITOURINARY: Deferred. EXTREMITIES: No cyanosis, no clubbing, no edema. Peripheral pulses are palpable. NEUROLOGIC: The patient is awake, alert and oriented. Cranial nerves are grossly intact. Results Result Diagram: 11/28/16 0540 11/28/16 0540 Results 24 hrs Laboratory Tests Test 11/27/16 11:50 11/27/16 13:30 11/28/16 05:40 Urine Color LT. YELLOW Urine Clarity CLEAR Urine pH 6.0 Urine Specific [place] 1.025 Urine Ketones 3+ H Urine Nitrite NEGATIVE Urine Bilirubin NEGATIVE Urine Urobilinogen 0.2 E.U./dL Urine Leukocyte Esterase NEGATIVE Urine Microscopic RBC >50 Urine Microscopic WBC 10-25 Urine Epithelial Cells FEW Urine Bacteria FEW Urine Yeast FEW Urine Hemoglobin 3+ H Urine Glucose NEGATIVE Urine Total Protein TRACE Urine Opiates Screen POSITIVE Urine Barbiturates NEGATIVE Urine Amphetamines Screen NEGATIVE Urine Benzodiazepines Screen NEGATIVE Urine Cocaine Screen NEGATIVE Urine Cannabinoids POSITIVE Stool Occult Blood POSITIVE White Blood Count 7.9 Red Blood Count 3.99 L Hemoglobin 11.8 L Hematocrit 34.9 L Mean Corpuscular Volume 87.5 Mean Corpuscular Hemoglobin 29.6 Mean Corpuscular Hemoglobin Concent 33.8 Red Cell Distribution Width 12.4 Platelet Count 168 Mean Platelet Volume 10.9 H Neutrophils % 56.1 Lymphocytes % 33.8 Monocytes % 7.6 Eosinophils % 1.6 Basophils % 0.5 Nucleated Red Blood Cells % 0.0 Neutrophils # 4.4 Lymphocytes # 2.7 Monocytes # 0.6 Eosinophils # 0.1 Basophils # 0.0 Nucleated Red Blood Cells # 0.0 Sodium Level 136 Potassium Level 3.4 L Chloride Level 102 Carbon Dioxide Level 26 Anion Gap 11 Blood Urea Nitrogen 6 #L Creatinine 0.56 Glucose Level 93 Calcium Level 8.2 L Phosphorus Level 3.6 Magnesium Level 1.7 Total Bilirubin 0.4 Direct Bilirubin 0.00 Indirect Bilirubin 0.4 Aspartate Amino Transf (AST/SGOT) 50 H Alanine Aminotransferase (ALT/SGPT) 53 Alkaline Phosphatase 40 L Total Protein 6.1 Albumin 3.5 Globulin 2.60 Albumin/Globulin Ratio 1.34 Medications Medications Current Medications Ondansetron HCl 4 mg 4 mg Q6H PRN IV NAUSEA AND/OR VOMITING Last administered on 11/28/16 07:41; Admin Dose 4 MG; Start 11/26/16 at 05:30 Piperacillin Sod/ Tazobactam Sod 100 ml @ 200 mls/hr Q6 IVPB Last administered on 11/28/16 06:15; Admin Dose 200 MLS/HR; Start 11/26/16 at 07:00 Potassium Chloride/Dextrose/ Sod Cl (D5-1/2ns + KCl 10 Meq) 1,000 ml @ 100 mls/ hr Q10H IV Last administered on 11/28/16 06:21; Admin Dose 100 MLS/HR; Start at 07:30 Acetaminophen/ Hydrocodone Bitart ([place] (5/325)) 1 tab Q6H PRN PO pain Last administered on 11/28/16 02:00; Admin Dose 1 TAB; Start 11/27/16 at 08:39 Pantoprazole (Protonix Iv) 40 mg BID@06,18 IV Last administered on 11/28/16 06: 15; Admin Dose 40 MG; Start 11/27/16 at 18:00 Hydromorphone HCl (Dilaudid) 1.5 mg Q4H PRN IV PAIN Last administered on 08:10; Admin Dose 1.5 MG; Start 11/28/16 at 00:00 Hydromorphone HCl 1.5 mg 1.5 mg Q4H PRN IV PAIN; Start 11/28/16 at 11:51 Potassium Chloride/Dextrose (KCl/D5W) 265 ml @ 88.333 mls/ hr ONCE ONCE IVPB ; Start 11/28/16 at 10:00; Stop 11/28/16 at 12:59; Status ROSEMARIE GRAJEDA NP November 28, 2016 09:50
[2016-11-28] MEDS ORDERED: LORAZEPAM 2 MG INJ IV ONE (10:30)
[2016-11-28] MEDS ORDERED: POTASSIUM CHLORIDE 30 MEQ in DEXTROSE 5% 250 ML IVPB ONE (10:30)
[2016-11-28] MEDS ORDERED: HYDROmorphONE 2 MG/ML SYG IV PRN (11:51)
[2016-11-28 12:49] LABS: CARCINOEMBRYONIC ANTIGEN 1.7 ng/ml (0.0-5.0)
[2016-11-28 12:53] LABS: CANCER ANTIGEN 19-9 19.4 U/ml (0.0-37.0)
--- NOTE | 2016-11-28 13:25 | RADRPT ---
PROCEDURE: MRCP. CLINICAL INDICATION: Elevated liver function tests. TECHNIQUE: MRCP was performed. The following sequences were obtained: Three plane gradient echo localizers, coronal gradient echo images, breath hold axial T2-weighted fat saturation images, nika nal T2-weighted images, axial 3-D LAVA images, axial T2-weighted breath hold fast spin echo images, and 3-D coronal rotating MIP images of the biliary tree. COMPARISON: CT scan of the abdomen and pelvis dated 11/27/2016. FINDINGS: There are very small bilateral pleural effusions. The liver is normal in size. There is normal sig nal intensity within the liver. There is no focal hepatic lesion. There is mild intrahepatic periportal edema. The spleen is normal in size and homogeneous in signal intensity. There are no gallstones in the gallbladder. There is a small amount of ascites with a small amount o f free fluid adjacent to the gallbladder. The biliary tree is not dilated. No intrahepatic nor extrahepatic biliary dilatation is present. The pancreatic duct is grossly normal. The kidneys are grossly normal. The abdominal aorta is not dilated. IMPRESSION: 1. Very small bilateral pleural effusions. 2. Small amount of ascites with small amount of free fluid adjacent to the gallbladder. 3. Normal bile ducts. 4. Mild intrahepatic periportal edema. 5. Otherwise unremarkable study. RPTAT: QQ .Markus Moon MD, Date Time Electronically viewed and signed by .Markus Moon MD, on 11/28/2016 13:25 .R/
[2016-11-28] MEDS ORDERED: BISACODYL (EC) 5 MG TAB PO ONE (14:00)
--- NOTE | 2016-11-28 17:04 | PN ---
Date/Time of Note Date/Time of Note DATE: 11/28/16 TIME: 16:58 Assessment/Plan VTE Prophylaxis VTE Prophylaxis Intervention: SCD's Lines/Catheters IV Catheter Type (from [facility]): Peripheral IV Urinary Cath still in place: No Assessment/Plan Chief Complaint/Hosp Course 31 year old female with no significant medical hisytory was transferred to our hospital from [facility] because of abdominal pain.Condition started 1day prior to admission as sharp abdominal pain along epigastric and right upper quadrant area with associated nausea and vomiting.Denies any fever ,cough ,hematemesis nor melena.Subsequent ultrasound at [facility] revealed cholecystitis,however due to insurance issues patient was transferred . Emergency room ,still complains of right upper quadrant pain radiating to the back,ultrasound revealed 5 mm gallbladder polyp. Recommend linear follow-up abdominal ultrasound.Otherwise unremarkable ultrasound of the abdomen and retroperitoneum..Elevated WBC 14,3. On examination patient have right upper quadrant pain with radiation to the back with associated hematochezia 1/3 glass per bout x 2 episodes.Present hemoglobin is 9.4.Still awaiting CT scan abdomen/pelvis Problems: Assessment/Plan Abdominal pain * PUD vs GERD vs Cholelithiasis * Hematochezia * Lower GI bleed vs upper GI bleed Plan * continue present management * EGD/colonoscopy . Risks and benefits explained to patient and agreed with the procedure * PPI Subjective 24 Hr Interval Summary Free Text/Dictation * Course reviewed with RN * Patient seen and examined * CT abdomen /pelvis 11/27/2016 * Mild abdominal and pelvic free fluid. Mildly distended gallbladder. Pericholecystic fluid. No calcified gallstones or definite gallbladder wall thickening to suggest acute cholecystitis. The distal common duct is dilated at 7 mm consistent with a distal common bile l obstruction. No calcified intraductal stone is identified. . Hepatosplenomegaly. Liver is mildly heterogeneous with evidence for. Portal edema, which is nonspecific and can be seen with hepatitis. Appendix not distinctly visualized. No focal right lower quadrant changes to suggest acute appendicitis. MRCP 11/27/2016 Very small bilateral pleural effusions. Small amount of ascites with small amount of free fluid adjacent to the gallbladder. Normal bile ducts. . Mild intrahepatic periportal edema. . Otherwise unremarkable study. Exam/Review of Systems Vital Signs Vitals Vital Signs Date Time Temp Pulse Resp B/P Pulse Ox O2 Delivery O2 Flow Rate FiO2 11/28/16 07:55 98.4 54 16 151/83 100 11/26/16 18:11 Room Air Intake and Output 11/27/16 11/27/16 11/28/16 15:00 23:00 07:00 Intake Total 100 ml 1100 ml 1200 ml Balance 100 ml 1100 ml 1200 ml Exam Constitutional: alert, oriented Psych: nl mood/affect Neck: non-tender, supple Respiratory: clear to auscultation, normal air movement Cardiovascular: nl pulses, regular rate and rhythm Gastrointestinal: bowel sounds, soft, tender, No rebound or guarding Musculoskeletal: nl extremities to inspection Results Result Diagram: 11/28/16 0540 11/28/16 0540 Results 24 hrs Laboratory Tests Test 11/28/16 05:40 11/28/16 11:25 White Blood Count 7.9 Red Blood Count 3.99 L Hemoglobin 11.8 L Hematocrit 34.9 L Mean Corpuscular Volume 87.5 Mean Corpuscular Hemoglobin 29.6 Mean Corpuscular Hemoglobin Concent 33.8 Red Cell Distribution Width 12.4 Platelet Count 168 Mean Platelet Volume 10.9 H Neutrophils % 56.1 Lymphocytes % 33.8 Monocytes % 7.6 Eosinophils % 1.6 Basophils % 0.5 Nucleated Red Blood Cells % 0.0 Neutrophils # 4.4 Lymphocytes # 2.7 Monocytes # 0.6 Eosinophils # 0.1 Basophils # 0.0 Nucleated Red Blood Cells # 0.0 Sodium Level 136 Potassium Level 3.4 L Chloride Level 102 Carbon Dioxide Level 26 Anion Gap 11 Blood Urea Nitrogen 6 #L Creatinine 0.56 Glucose Level 93 Calcium Level 8.2 L Phosphorus Level 3.6 Magnesium Level 1.7 Total Bilirubin 0.4 Direct Bilirubin 0.00 Indirect Bilirubin 0.4 Aspartate Amino Transf (AST/SGOT) 50 H Alanine Aminotransferase (ALT/SGPT) 53 Alkaline Phosphatase 40 L Total Protein 6.1 Albumin 3.5 Globulin 2.60 Albumin/Globulin Ratio 1.34 Alpha Fetoprotein 1.10 Carcinoembryonic Antigen 1.7 CA 19-9 Antigen 19.4 Medications Medications Current Medications Ondansetron HCl 4 mg 4 mg Q6H PRN IV NAUSEA AND/OR VOMITING Last administered on 11/28/16t 07:41; Admin Dose 4 MG; Start 11/26/16 at 05:30 Piperacillin Sod/ Tazobactam Sod 100 ml @ 200 mls/hr Q6 IVPB Last administered on 11/28/16 14:35; Admin Dose 200 MLS/HR; Start 11/26/16 at 07:00 Potassium Chloride/Dextrose/ Sod Cl (D5-1/2ns + KCl 10 Meq) 1,000 ml @ 100 mls/ hr Q10H IV Last administered on 11/28/16 06:21; Admin Dose 100 MLS/HR; Start at 07:30 Acetaminophen/ Hydrocodone Bitart ([place] (5/325)) 1 tab Q6H PRN PO pain Last administered on 11/28/16 10:11; Admin Dose 1 TAB; Start 11/27/16 at 08:39 Pantoprazole (Protonix Iv) 40 mg BID@06,18 IV Last administered on 11/28/16 06: 15; Admin Dose 40 MG; Start 11/27/16 at 18:00 Hydromorphone HCl (Dilaudid) 1.5 mg Q4H PRN IV PAIN Last administered on 16:20; Admin Dose 1.5 MG; Start 11/28/16 at 00:00 Hydromorphone HCl (Dilaudid) 1.5 mg Q4H PRN IV PAIN; Start 11/28/16 at 11:51 Magnesium Citrate (Citroma) 300 ml ONCE ONCE PO ; Start 11/28/16 at 17:30; Stop 11/28/16 at 17:31 Polyethylene Glycol (Miralax) 119 gm ONCE ONCE PO ; Start 11/28/16 at 18:30; Stop 11/28/16 at 18:31 VU JOHNS MD November 28, 2016 17:04
[2016-11-28] MEDS ORDERED: MAGNESIUM CITRATE 300 ML BTL PO ONE (17:30)
[2016-11-28] MEDS ORDERED: POLYETHYLENE GLYCOL 3350 119 GM POWDER PO ONE (18:30)
[2016-11-28 19:27] VITALS: BP 136/84; RESP 18
[2016-11-28] MEDS ORDERED: HYDROmorphONE 1 MG/ML SYG IV STA (20:51)
--- NOTE | 2016-11-28 21:03 | RADRPT ---
PROCEDURE: XR Chest. CLINICAL INDICATION: Chest tightness. TECHNIQUE: Single frontal chest x-ray. COMPARISON: None. FINDINGS: The cardiomediastinal silhouette is unremarkable. There is no congestive heart failure.. No focal i nfiltrate is seen. There is no pleural effusion. There is no pneumothorax. The osseous structures are unremarkable. IMPRESSION: 1. No active disease. RPTAT: HMVK .Delfin Webb MD, MD Date Time Electronically viewed and signed by .Delfin Webb MD, on 11/28/2016 21:02 .K/
[2016-11-28] MEDS: METOCLOPRAMIDE 10 MG INJ IV PRN (22:27)
[2016-11-28 23:32] VITALS: BP 123/80; PULSE 58; RESP 18
[2016-11-29] VITALS (7 sets, daily range): BP systolic 104–149; BP diastolic 65–94; PULSE 54–68; RESP 17–27
[2016-11-29] MEDS: HYDROmorphONE 2 MG/ML SYG IV PRN ×7 (00:12→21:22)
[2016-11-29] MEDS: ONDANSETRON 4 MG INJ IV PRN ×3 (02:23→20:18)
[2016-11-29] MEDS: PANTOPRAZOLE 40 MG INJ IV SCH ×2 (05:33→18:19)
[2016-11-29] MEDS: PIPER-TAZO 3.375 GM IV (PMX) 100 ML IVPB SCH ×3 (05:33→18:19)
[2016-11-29] MEDS: METOCLOPRAMIDE 10 MG INJ IV PRN ×3 (05:33→22:11)
[2016-11-29] MEDS ORDERED: POLYETHYLENE GLYCOL 3350 119 GM POWDER PO ONE (06:00)
[2016-11-29 06:23] LABS: ADD SCAN DIFF NO
[2016-11-29 06:33] LABS: BASOPHILS % 0.4 % (0.0-2.0); EOSINOPHILS # 0.2 10^3/ul (0.0-0.5); EOSINOPHILS % 2.4 % (0.0-7.0); HEMATOCRIT 36.1 % (37.0-47.0); HEMOGLOBIN 12.4 g/dl (12.0-16.0); LYMPHOCYTES # 1.9 10^3/ul (0.8-2.9); LYMPHOCYTES % 26.1 % (15.0-51.0); MEAN CORPUSCULAR HEMOGLOBIN 29.5 pg (29.0-33.0); MEAN CORPUSCULAR HGB CONC 34.3 g/dl (32.0-37.0); MEAN CORPUSCULAR VOLUME 85.7 fl (82.0-101.0); MEAN PLATELET VOLUME 11.4 fl (7.4-10.4); MONOCYTE # 0.6 10^3/ul (0.3-0.9); MONOCYTES % 8.3 % (0.0-11.0); NEUTROPHIL # 4.5 10^3/ul (1.6-7.5); NEUTROPHILS % 62.5 % (39.0-77.0); PLATELET COUNT 198 10^3/UL (140-415); RED BLOOD COUNT 4.21 10^6/ul (4.20-5.40); RED CELL DISTRIBUTION WIDTH 12.1 % (11.5-14.5); WHITE BLOOD COUNT 7.2 10^3/ul (4.8-10.8)
[2016-11-29 07:17] LABS: MAGNESIUM 1.9 mg/dl (1.7-2.5); PHOSPHORUS 3.7 mg/dl (2.5-4.9)
[2016-11-29 07:36] LABS: ALBUMIN 3.7 g/dl (3.3-4.9); ALBUMIN/GLOBULIN RATIO 1.48; BILIRUBIN,INDIRECT 0.4 mg/dl (0-1.1); BILIRUBIN,TOTAL 0.4 mg/dl (0.2-1.3); CALCIUM 8.6 mg/dl (8.4-10.2); CREATININE 0.54 mg/dl (0.44-1.00); POTASSIUM 3.5 mmol/L (3.5-5.1); TOTAL PROTEIN 6.2 g/dl (6.1-8.1)
[2016-11-29] MEDS ORDERED: BISACODYL (EC) 5 MG TAB PO ONE (08:00)
--- NOTE | 2016-11-29 09:24 | PN ---
Date/Time of Note Date/Time of Note DATE: 11/29/16 TIME: 09:21 Assessment/Plan Lines/Catheters IV Catheter Type (from [facility]): Peripheral IV Jules in Place (from [facility]): No Assessment/Plan Assessment/Plan 31F with right upper quadrant abdominal pain * No evidence of cholelithiasis or acute cholecystitis on ultrasound * 5mm polyp likely not cause of patient's symptoms. Can continue to monitor for now. * Differential diagnosis includes Gastroenteritis, Hepatitis, Gastritis, Peptic Ulcer Disease, etc. * Leukocytosis improved. Hemoglobin stable. * Hepatitis Panel negative. C. difficile negative. * Patient still with significant pain and now with new onset blood in stool * CT scan images were reviewed. Hepatomegaly, splenomegaly. Periportal edema and inflammation. Likely hepatitis. ?Etiology. Gallbladder findings likely reactive to hepatitis. MRI also shows mild periportal edema. * For EGD/colonoscopy today The above was discussed with the patient, nurse, and primary care team. Further recommendations will be made based on clinical course. Subjective 24 Hr Interval Summary Still with epigastric/right upper quadrant pain. About the same. One episode of vomiting after bowel prep. Loose non-bloody stools. Afebrile. Exam/Review of Systems Vital Signs Vitals Vital Signs Date Time Temp Pulse Resp B/P Pulse Ox O2 Delivery O2 Flow Rate FiO2 11/29/16 07:50 98.7 54 18 128/77 99 11/29/16 05:40 Room Air Intake and Output 11/28/16 11/28/16 11/29/16 15:00 23:00 07:00 Intake Total 800 ml 1720 ml Output Total 400 ml Balance 400 ml 1720 ml Exam Free Text/Dictation GENERAL: Awake, alert, oriented x 3. No acute distress. SKIN: No jaundice HEENT: No scleral icterus CARDIOVASCULAR: S1S2, regular rate and rhythm RESPIRATORY: clear to auscultation bilaterally ABDOMEN: soft, non-distended, bowel sounds present. Tenderness to palpation in the epigastrium and right upper quadrant without any rebound or guarding. EXTREMITIES: no cyanosis, edema or clubbing Results Result Diagram: 11/29/16 0530 11/29/16 0530 SUDARSHAN JIMENEZ MD November 29, 2016 09:24
--- NOTE | 2016-11-29 09:56 | PN ---
Date/Time of Note Date/Time of Note DATE: 11/29/16 TIME: 09:55 Assessment/Plan VTE Prophylaxis VTE Prophylaxis Intervention: SCD's Lines/Catheters IV C[facility]ter Type (from [facility]): Peripheral IV Urinary Cath still in place: No Assessment/Plan Chief Complaint/Hosp Course 1. Acute abdominal pain. Etiology unclear. Abdominal CT scan showing mildly distended gallbladder with pericholecystic fluid but no evidence of stones or definite gallbladder wall thickening to suggest acute cholecystitis. The common bile duct is dilated to 7 mm consistent with a distal obstruction. The CT also showed hepatosplenomegaly and portal edema. Hepatitis B and C panel negative. Patient being evaluated for any underlying autoimmune hepatitis. MRCP negative for any choledocholithiasis. 2. Hematochezia. The patient being followed by gastroenterology. Plan for esophagogastroduodenoscopy and colonoscopy 3. Fluid, electrolytes and nutrition. Continue IV fluids. Clear liquid diet if she can tolerate. 4. Deep vein thrombosis prophylaxis with bilateral sequential compression devices. 5. Gastrointestinal prophylaxis. Proton pump inhibitors. 6. Plan. Continue pain control. Continue empiric antibiotics. Await esophagogastroduodenoscopy and colonoscopy. Case discussed with Dr. Rodriguez. Problems: Subjective 24 Hr Interval Summary Free Text/Dictation Patient continues to have severe abdominal pain. Was complaining of some chest tightness last night. Chest x-ray negative. Exam/Review of Systems Vital Signs Vitals Vital Signs Date Time Temp Pulse Resp B/P Pulse Ox O2 Delivery O2 Flow Rate FiO2 11/29/16 07:50 98.7 54 18 128/77 99 11/29/16 05:40 Room Air Intake and Output 11/28/16 11/28/16 11/29/16 14:59 22:59 06:59 Intake Total 800 ml 1720 ml Output Total 400 ml Balance 400 ml 1720 ml Exam GENERAL: This is an adequately built 31-year-old female sitting in bed in a position because of pain. HEENT: Normocephalic and atraumatic. Eyes: Anicteric sclerae. Conjunctivae clear. ENT: Nasal septum is midline. Oral mucosa is dry. NECK: Supple. No JVD noticed. RESPIRATORY: Bilaterally clear to auscultation. No adventitious breath sounds heard. No use of accessory muscles of respiration. CARDIAC: Regular rate and rhythm. No murmurs. ABDOMEN: Soft. No guarding. Diffuse tenderness. Bowel sounds are positive in all 4 quadrants. GENITOURINARY: Deferred. EXTREMITIES: No cyanosis, no clubbing, no edema. Peripheral pulses are palpable. NEUROLOGIC: The patient is awake, alert and oriented. Cranial nerves are grossly intact. Results Result Diagram: 11/29/16 0530 11/29/16 0530 Results 24 hrs Laboratory Tests Test 11/28/16 11:25 11/28/16 18:00 11/28/16 20:43 11/29/16 01:59 Alpha Fetoprotein 1.10 Carcinoembryonic Antigen 1.7 CA 19-9 Antigen 19.4 Urine Test NEGATIVE Troponin I < 0.012 < 0.012 Test 11/29/16 05:30 White Blood Count 7.2 Red Blood Count 4.21 Hemoglobin 12.4 Hematocrit 36.1 L Mean Corpuscular Volume 85.7 Mean Corpuscular Hemoglobin 29.5 Mean Corpuscular Hemoglobin Concent 34.3 Red Cell Distribution Width 12.1 Platelet Count 198 Mean Platelet Volume 11.4 H Neutrophils % 62.5 Lymphocytes % 26.1 Monocytes % 8.3 Eosinophils % 2.4 Basophils % 0.4 Nucleated Red Blood Cells % 0.0 Neutrophils # 4.5 Lymphocytes # 1.9 Monocytes # 0.6 Eosinophils # 0.2 Basophils # 0.0 Nucleated Red Blood Cells # 0.0 Sodium Level 137 Potassium Level 3.5 Chloride Level 102 Carbon Dioxide Level 28 Anion Gap 11 Blood Urea Nitrogen 2 L Creatinine 0.54 Glucose Level 103 Calcium Level 8.6 Phosphorus Level 3.7 Magnesium Level 1.9 Total Bilirubin 0.4 Direct Bilirubin 0.00 Indirect Bilirubin 0.4 Aspartate Amino Transf (AST/SGOT) 38 Alanine Aminotransferase (ALT/SGPT) 48 Alkaline Phosphatase 41 L Total Protein 6.2 Albumin 3.7 Globulin 2.50 Albumin/Globulin Ratio 1.48 Medications Medications Current Medications Ondansetron HCl 4 mg 4 mg Q6H PRN IV NAUSEA AND/OR VOMITING Last administered on 11/29/16 08:05; Admin Dose 4 MG; Start 11/26/16 at 05:30 Piperacillin Sod/ Tazobactam Sod 100 ml @ 200 mls/hr Q6 IVPB Last administered on 11/29/16 05:33; Admin Dose 200 MLS/HR; Start 5/2/17 at 07:00 Potassium Chloride/Dextrose/ Sod Cl (D5-1/2ns + KCl 10 Meq) 1,000 ml @ 100 mls/ hr Q10H IV Last administered on 11/28/16 23:27; Admin Dose 100 MLS/HR; Start at 07:30 Acetaminophen/ Hydrocodone Bitart ([place] (5/325)) 1 tab Q6H PRN PO pain Last administered on 11/28/16 10:11; Admin Dose 1 TAB; Start 11/27/16 at 08:39 Pantoprazole (Protonix Iv) 40 mg BID@06,18 IV Last administered on 11/29/16 05: 33; Admin Dose 40 MG; Start 11/27/16 at 18:00 Metoclopramide HCl (Reglan) 5 mg Q4H PRN IV VOMITTING Last administered on 05:33; Admin Dose 5 MG; Start 11/28/16 at 21:00 Hydromorphone HCl (Dilaudid) 1.5 mg Q3H PRN IV PAIN Last administered on 08:06; Admin Dose 1.5 MG; Start 11/28/16 at 21:00 ROSEMARIE GLORIA NP November 29, 2016 09:56 ROSEMARIE GLORIA NP November 29, 2016 09:56
[2016-11-29] MEDS: D5W-0.45 NACL + KCL 10 MEQ 1,000 ML IV SCH ×2 (11:48→19:30)
--- NOTE | 2016-11-29 16:40 | RADRPT ---
Vent Rate: 48 bpm RR Interval: 0 msec AR Interval: 144 msec QRS Duration: 84 msec QT Interval: 508 msec QTC Interval: 453 msec P-R-T [place]: 55 - 93 - 81 degrees Marked sinus bradycardia with sinus arrhythmia Rightward axis Cannot rule out Anterior infarct , age undetermined Abnormal ECG Electronically Signed By: Mikel Oswald [id number]
[2016-11-29] MEDS ORDERED: PROPOFOL 20 ML ONE ×2 (17:28→17:46)
[2016-11-29] MEDS ORDERED: DIPHENHYDRAMINE 50 MG INJ IV PRN (18:00)
[2016-11-29] MEDS ORDERED: METOCLOPRAMIDE 10 MG INJ IV PRN (18:00)
[2016-11-29] MEDS ORDERED: MEPERIDINE 25 MG INJ IV PRN (18:00)
[2016-11-29] MEDS ORDERED: ONDANSETRON 4 MG INJ IV PRN (18:00)
[2016-11-29] MEDS ORDERED: FENTAnyl 50 MCG/ML VIAL IV PRN (18:00)
[2016-11-29] MEDS ORDERED: MIDAZOLAM 1 MG/ML 2 ML INJ IV PRN (18:00)
--- NOTE | 2016-11-29 18:51 | GILP ---
DATE OF PROCEDURE: 11/29/2016 PROCEDURE: EGD with biopsies. BRIEF HISTORY AND INDICATIONS: The patient is being evaluated for abdominal pain. PREMEDICATION: Monitored anesthesia care by anesthesiologist. SURGEON: Vu Lamb MD INSTRUMENT USED: Olympus panendoscope. TECHNIQUE: After informed consent, with the patient/relatives understanding the procedure, its indications, potential risks and complications, including but not limited to: allergic reaction, bleeding, perforation or infection, and after all pertinent questions were answered to the patients satisfaction, the patient/relatives signed witnessed informed consent. Following this, premedication was administered slowly IV push under careful cardiovascular and respiratory monitoring with pulse oximetry, automatic blood pressure and shelter monitor. Once the sedative effect was achieved the patient was place in the left lateral decubitus, the panendoscope was introduced and advanced under visual control. Careful examination of the upper gastrointestinal tract, both on insertion as well as withdrawal of the instrument disclosed the following findings: ESOPHAGUS: The distal esophagus shows erythema and edema and superficial erosion of the mucosa. STOMACH: Upon entrance to the stomach, air was insufflated, the gastric mace distended normally. The mucosa of the fundus, body, and antrum of the stomach was carefully examined and shows erythema and edema of the mucosa of a moderate degree. Biopsies were obtained to rule out H. pylori infection. PYLORUS: The pylorus appears patent and within normal limits, with no evidence of gastric outlet obstruction. DUODENUM: The duodenal mucosa was carefully examined in the duodenal bulb as well as the second portion of the duodenum and appears unremarkable with no evidence of duodenitis, ulcer or neoplasm. The instrument was then withdrawn, the patient tolerated the procedure well and was transfer out of the endoscopy suite awake, and in good condition to continue recovery under observation IMPRESSION: 1. Erosive esophagitis. 2. Gastritis, rule out Helicobacter pylori infection. Biopsies obtained. PLAN: PPI therapy. Review pathology as soon as available. Dictated By: VU LAMB MS/TAWNYA Conf#: [id number] DID#: [id number] MTDD
--- NOTE | 2016-11-29 18:57 | GILP ---
DATE OF PROCEDURE: NAME OF PROCEDURE: Colonoscopy with biopsies. BRIEF HISTORY AND INDICATION: The patient is being evaluated for unexplained abdominal pain. PREMEDICATION: Monitored anesthesia care by anesthesiologist. SURGEON: Vu Lamb MD. INSTRUMENT USED: Olympus colonoscope. PREPARATION: Is adequate. TECHNIQUE: After informed consent, with the patient/relatives understanding the procedure, its indic ations potential risks and complications, including but not limited to: allergic reaction, bleeding, perforation, infection, missed lesions and after all pertinent questions were answered to the patie nt's satisfaction, the patient/relatives signed the witnessed informed consent. Following this, premedication was administered slowly IV push by under careful cardiovascular and re spiratory monitoring with pulse oximetry, automatic blood pressure and surveillance system monitor. Once the sedativ e effect was achieved, the patient was placed in the left lateral decubitus position, digital rectal examination was performed. The colonoscope was then introduced and advanced under visual control th roughout all segments of the colon including: the rectum, sigmoid, descending colon, splenic flexure , transverse colon, hepatic flexure, ascending colon and finally reaching the cecum which was clearl y identified by transillumination, finger indentation and the ileocecal valve. Careful examination o f the mucosa of the lower gastrointestinal tract both on insertion as well as withdrawal of the inst rument disclosed the following findings: Rectal Examination: No evidence of perirectal disease, no masses. Colonic Mucosa: The mucosa is entirely unremarkable throughout. The ileocecal valve was clearly id entified and appears unremarkable and the instrument was withdrawn, reexamining the mucosa in detail . No additional abnormalities are noted with the exception of moderate sized internal hemorrhoids. Random biopsies were obtained on withdrawal of the instrument to rule out microscopic lymphocytic o r collagenous colitis. IMPRESSION: Normal colonic mucosa to cecum. Rule out microscopic lymphocytic or collagenous colit is. Random biopsies obtained. PLAN: The patient will be continued on present regimen. Diet will be advanced as tolerated. Patho logy will be reviewed as soon as available. Dictated By: VU LAMB MS/TAWNYA Conf#: [id number] DID#: [id number]
[2016-11-29] MEDS: HYDROCODONE/APAP (5/325) TAB PO PRN (20:18)
[2016-11-30] MEDS: PIPER-TAZO 3.375 GM IV (PMX) 100 ML IVPB SCH ×2 (00:32→06:02)
[2016-11-30] MEDS: HYDROmorphONE 2 MG/ML SYG IV PRN ×3 (00:33→10:18)
[2016-11-30] MEDS: D5W-0.45 NACL + KCL 10 MEQ 1,000 ML IV SCH ×2 (00:38→05:30)
[2016-11-30 05:42] LABS: ADD SCAN DIFF NO
[2016-11-30 05:50] LABS: BASOPHILS % 0.4 % (0.0-2.0); EOSINOPHILS # 0.3 10^3/ul (0.0-0.5); EOSINOPHILS % 3.5 % (0.0-7.0); HEMATOCRIT 37.3 % (37.0-47.0); HEMOGLOBIN 12.5 g/dl (12.0-16.0); LYMPHOCYTES # 2.9 10^3/ul (0.8-2.9); LYMPHOCYTES % 39.8 % (15.0-51.0); MEAN CORPUSCULAR HEMOGLOBIN 28.7 pg (29.0-33.0); MEAN CORPUSCULAR HGB CONC 33.5 g/dl (32.0-37.0); MEAN CORPUSCULAR VOLUME 85.6 fl (82.0-101.0); MEAN PLATELET VOLUME 10.9 fl (7.4-10.4); MONOCYTE # 0.6 10^3/ul (0.3-0.9); MONOCYTES % 8.3 % (0.0-11.0); NEUTROPHIL # 3.5 10^3/ul (1.6-7.5); NEUTROPHILS % 47.7 % (39.0-77.0); PLATELET COUNT 192 10^3/UL (140-415); RED BLOOD COUNT 4.36 10^6/ul (4.20-5.40); RED CELL DISTRIBUTION WIDTH 12.1 % (11.5-14.5); WHITE BLOOD COUNT 7.4 10^3/ul (4.8-10.8)
[2016-11-30] MEDS: PANTOPRAZOLE 40 MG INJ IV SCH (06:02)
[2016-11-30] MEDS: ONDANSETRON 4 MG INJ IV PRN (06:08)
[2016-11-30] MEDS: HYDROCODONE/APAP (5/325) TAB PO PRN (06:08)
[2016-11-30 06:09] LABS: ALANINE AMINOTRANSFERASE 44 IU/L (13-69); ALBUMIN 3.7 g/dl (3.3-4.9); ALBUMIN/GLOBULIN RATIO 1.42; ALKALINE PHOSPHATASE 39 IU/L (42-121); ANION GAP 10 (8-16); ASPARTATE AMINO TRANSFERASE 29 IU/L (15-46); BILIRUBIN,INDIRECT 0.4 mg/dl (0-1.1); BILIRUBIN,TOTAL 0.4 mg/dl (0.2-1.3); CALCIUM 8.6 mg/dl (8.4-10.2); CARBON DIOXIDE 28 mmol/L (21-31); CHLORIDE 102 mmol/L (97-110); CREATININE 0.56 mg/dl (0.44-1.00); GLUCOSE 109 mg/dl (70-220); POTASSIUM 3.4 mmol/L (3.5-5.1); SODIUM 137 mmol/L (135-144); TOTAL PROTEIN 6.3 g/dl (6.1-8.1)
[2016-11-30 06:13] LABS: MAGNESIUM 1.9 mg/dl (1.7-2.5); PHOSPHORUS 4.5 mg/dl (2.5-4.9)
[2016-11-30 06:16] LABS: BLOOD UREA NITROGEN < 2 mg/dl (7-20)
[2016-11-30 07:40] VITALS: BP 126/82; PULSE 77; RESP 18
--- NOTE | 2016-11-30 09:34 | CONS ---
Date/Time of Note Date/Time of Note DATE: 11/30/16 TIME: 09:28 Assessment/Plan Assessment/Plan Additional Assessment/Plan Abdominal pain Status post EGD: 1. Erosive esophagitis. 2. Gastritis, rule out Helicobacter pylori infection. Biopsies obtained. Continue PPI twice daily Add Carafate 4 times daily Review pathology Gallbladder polyp Review HIDA scan Trend amylase Hematochezia Status post colonoscopy: Normal colonic mucosa to cecum. Rule out microscopic lymphocytic or collagenous colitis. Random biopsies obtained. No reports of bedside Further recommendations depend on clinical course Patient seen in collaboration with Dr. Lamb Consultation Date/Type/Reason Admit Date/Time November 26, 2016 at 00:41 Initial Consult Date 11/27/16 Type of Consultation: Gastroenterology 24 HR Interval Summary Free Text/Dictation Continues to report exquisite right upper quadrant and epigastric pain HIDA ordered Exam/Review of Systems Vital Signs Vitals Vital Signs Date Time Temp Pulse Resp B/P Pulse Ox O2 Delivery O2 Flow Rate FiO2 11/30/16 07:40 98.6 77 18 126/82 100 Room Air Intake and Output 11/29/16 11/29/16 11/30/16 15:00 23:00 07:00 Intake Total 200 ml 400 ml 1200 ml Balance 200 ml 400 ml 1200 ml Exam Constitutional: alert, oriented, well developed Psych: nl mood/affect Head: normocephalic Eyes: EOMI, nl conjunctiva, nl lids ENMT: nl external ears & nose, nl lips & teeth, nl nasal mucosa & septum Respiratory: clear to auscultation, normal air movement Cardiovascular: regular rate and rhythm Gastrointestinal: soft, right upper quadrant and epigastric tenderness Musculoskeletal: nl extremities to inspection Neurological: FINANCIAL ANALYSIS ADVISOR II-XII intact Results Result Diagram: 11/30/16 0512 11/30/16511 Results 24 hrs Laboratory Tests Test 11/30/16 05:12 White Blood Count 7.4 Red Blood Count 4.36 Hemoglobin 12.5 Hematocrit 37.3 Mean Corpuscular Volume 85.6 Mean Corpuscular Hemoglobin 28.7 L Mean Corpuscular Hemoglobin Concent 33.5 Red Cell Distribution Width 12.1 Platelet Count 192 Mean Platelet Volume 10.9 H Neutrophils % 47.7 Lymphocytes % 39.8 Monocytes % 8.3 Eosinophils % 3.5 Basophils % 0.4 Nucleated Red Blood Cells % 0.0 Neutrophils # 3.5 Lymphocytes # 2.9 Monocytes # 0.6 Eosinophils # 0.3 Basophils # 0.0 Nucleated Red Blood Cells # 0.0 Sodium Level 137 Potassium Level 3.4 L Chloride Level 102 Carbon Dioxide Level 28 Anion Gap 10 Blood Urea Nitrogen < 2 L Creatinine 0.56 Glucose Level 109 Calcium Level 8.6 Phosphorus Level 4.5 Magnesium Level 1.9 Total Bilirubin 0.4 Direct Bilirubin 0.00 Indirect Bilirubin 0.4 Aspartate Amino Transf (AST/SGOT) 29 Alanine Aminotransferase (ALT/SGPT) 44 Alkaline Phosphatase 39 L Total Protein 6.3 Albumin 3.7 Globulin 2.60 Albumin/Globulin Ratio 1.42 Medications Medications Current Medications Ondansetron HCl 4 mg 4 mg Q6H PRN IV NAUSEA AND/OR VOMITING Last administered on 11/30/16 06:08; Admin Dose 4 MG; Start 11/26/16 at 05:30 Piperacillin Sod/ Tazobactam Sod 100 ml @ 200 mls/hr Q6 IVPB Last administered on 11/30/16 06:02; Admin Dose 200 MLS/HR; Start 11/26/16 at 07:00 Potassium Chloride/Dextrose/ Sod Cl (D5-1/2ns + KCl 10 Meq) 1,000 ml @ 100 mls/ hr Q10H IV Last administered on 11/30/16 00:38; Admin Dose 100 MLS/HR; Start at 07:30 Acetaminophen/ Hydrocodone Bitart ([place] (5/325)) 1 tab Q6H PRN PO pain Last administered on 11/30/16 06:08; Admin Dose 1 TAB; Start 11/27/16 at 08:39 Pantoprazole (Protonix Iv) 40 mg BID@06,18 IV Last administered on 11/30/16 06: 02; Admin Dose 40 MG; Start 11/27/16 at 18:00 Metoclopramide HCl (Reglan) 5 mg Q4H PRN IV VOMITTING Last administered on 22:11; Admin Dose 5 MG; Start 11/28/16 at 21:00 Hydromorphone HCl (Dilaudid) 1.5 mg Q3H PRN IV PAIN Last administered on 04:27; Admin Dose 1.5 MG; Start 11/28/16 at 21:00 CHRISTOPHER BURT November 30, 2016 09:34
--- NOTE | 2016-11-30 09:44 | PN ---
Date/Time of Note Date/Time of Note DATE: 11/30/16 TIME: 09:40 Assessment/Plan VTE Prophylaxis VTE Prophylaxis Intervention: SCD's Lines/Catheters IV [facility]ter [facility] (from [facility]): Peripheral IV Urinary Cath still in place: No Assessment/Plan Chief Complaint/Hosp Course 1. Acute abdominal pain. Etiology unclear. Abdominal CT scan showing mildly distended gallbladder with pericholecystic fluid but no evidence of stones or definite gallbladder wall thickening to suggest acute cholecystitis. The common bile duct is dilated to 7 mm consistent with a distal obstruction. The CT also showed hepatosplenomegaly and portal edema. Hepatitis B and C panel negative. Patient being evaluated for any underlying autoimmune hepatitis. MRCP negative for any choledocholithiasis. EDGscopy showing erosive esophagitis and gastritis. Continue PPI. 2. Hematochezia. The patient being followed by gastroenterology. S/P esophagogastroduodenoscopy and colonoscopy on 11/29/2016. EGDscopy negatibe for any ulcers. Continue PPI. 3. Fluid, electrolytes and nutrition. Continue IV fluids. Clear liquid diet if she can tolerate. 4. Deep vein thrombosis prophylaxis with bilateral sequential compression devices. 5. Gastrointestinal prophylaxis. Proton pump inhibitors. 6. Plan. Continue pain control. DC empiric antibiotics. HIDA scan ordered by gastroenterology. Replete potassium. Case discussed with Dr. Rodriguez. Case discussed with Gastroenterology. Case discussed with Surgery. The patient verbalized that she is tried of being in the hospital and her pain is not getting better. Problems: Subjective 24 Hr Interval Summary Free Text/Dictation Still complaining of significant abdominal pain and requesting pain medications around the clock. Exam/Review of Systems Vital Signs Vitals Vital Signs Date Time Temp Pulse Resp B/P Pulse Ox O2 Delivery O2 Flow Rate FiO2 11/30/16 07:40 98.6 77 18 126/82 100 Room Air Intake and Output 11/29/16 11/29/16 11/30/16 15:00 23:00 07:00 Intake Total 200 ml 400 ml 1200 ml Balance 200 ml 400 ml 1200 ml Exam GENERAL: This is an adequately built 31-year-old female sitting in bed in a position because of pain. HEENT: Normocephalic and atraumatic. Eyes: Anicteric sclerae. Conjunctivae clear. ENT: Nasal septum is midline. Oral mucosa is dry. NECK: Supple. No JVD noticed. RESPIRATORY: Bilaterally clear to auscultation. No adventitious breath sounds heard. No use of accessory muscles of respiration. CARDIAC: Regular rate and rhythm. No murmurs. ABDOMEN: Soft. No guarding. Diffuse tenderness. Bowel sounds are positive in all 4 quadrants. GENITOURINARY: Deferred. EXTREMITIES: No cyanosis, no clubbing, no edema. Peripheral pulses are palpable. NEUROLOGIC: The patient is awake, alert and oriented. Cranial nerves are grossly intact. Results Result Diagram: 11/30/1651111/30/16511 Results 24 hrs Laboratory Tests Test 11/30/16 05:12 White Blood Count 7.4 Red Blood Count 4.36 Hemoglobin 12.5 Hematocrit 37.3 Mean Corpuscular Volume 85.6 Mean Corpuscular Hemoglobin 28.7 L Mean Corpuscular Hemoglobin Concent 33.5 Red Cell Distribution Width 12.1 Platelet Count 192 Mean Platelet Volume 10.9 H Neutrophils % 47.7 Lymphocytes % 39.8 Monocytes % 8.3 Eosinophils % 3.5 Basophils % 0.4 Nucleated Red Blood Cells % 0.0 Neutrophils # 3.5 Lymphocytes # 2.9 Monocytes # 0.6 Eosinophils # 0.3 Basophils # 0.0 Nucleated Red Blood Cells # 0.0 Sodium Level 137 Potassium Level 3.4 L Chloride Level 102 Carbon Dioxide Level 28 Anion Gap 10 Blood Urea Nitrogen < 2 L Creatinine 0.56 Glucose Level 109 Calcium Level 8.6 Phosphorus Level 4.5 Magnesium Level 1.9 Total Bilirubin 0.4 Direct Bilirubin 0.00 Indirect Bilirubin 0.4 Aspartate Amino Transf (AST/SGOT) 29 Alanine Aminotransferase (ALT/SGPT) 44 Alkaline Phosphatase 39 L Total Protein 6.3 Albumin 3.7 Globulin 2.60 Albumin/Globulin Ratio 1.42 Medications Medications Current Medications Ondansetron HCl 4 mg 4 mg Q6H PRN IV NAUSEA AND/OR VOMITING Last administered on 11/30/16 06:08; Admin Dose 4 MG; Start 11/26/16 at 05:30 Piperacillin Sod/ Tazobactam Sod 100 ml @ 200 mls/hr Q6 IVPB Last administered on 11/30/16 06:02; Admin Dose 200 MLS/HR; Start 11/26/16 at 07:00 Potassium Chloride/Dextrose/ Sod Cl (D5-1/2ns + KCl 10 Meq) 1,000 ml @ 100 mls/ hr Q10H IV Last administered on 11/30/16 00:38; Admin Dose 100 MLS/HR; Start at 07:30 Acetaminophen/ Hydrocodone Bitart ([place] (5/325)) 1 tab Q6H PRN PO pain Last administered on 11/30/16 06:08; Admin Dose 1 TAB; Start 11/27/16 at 08:39 Pantoprazole (Protonix Iv) 40 mg BID@06,18 IV Last administered on 11/30/16 06: 02; Admin Dose 40 MG; Start 11/27/16 at 18:00 Metoclopramide HCl (Reglan) 5 mg Q4H PRN IV VOMITTING Last administered on 22:11; Admin Dose 5 MG; Start 11/28/16 at 21:00 Hydromorphone HCl (Dilaudid) 1.5 mg Q3H PRN IV PAIN Last administered on 04:27; Admin Dose 1.5 MG; Start 11/28/16 at 21:00 ROSEMARIE GLORIA NP November 30, 2016 09:44
[2016-11-30] MEDS ORDERED: SUCRALFATE (100 MG/ML) 10ML CUP PO SCH (10:00)
[2016-11-30] MEDS: METOCLOPRAMIDE 10 MG INJ IV PRN (10:18)
[2016-11-30] MEDS ORDERED: POTASSIUM CHLORIDE 30 MEQ in DEXTROSE 5% 250 ML IVPB ONE (10:30)
--- NOTE | 2016-11-30 11:13 | PN ---
Date/Time of Note Date/Time of Note DATE: 11/30/16 TIME: 11:11 Assessment/Plan Lines/Catheters IV Catheter Type (from [facility]): Peripheral IV Jules in Place (from [facility]): No Assessment/Plan Assessment/Plan 31F with right upper quadrant abdominal pain * No evidence of cholelithiasis or acute cholecystitis on ultrasound * 5mm polyp likely not cause of patient's symptoms. Can continue to monitor for now. * Differential diagnosis includes Gastroenteritis, Hepatitis, Gastritis, Peptic Ulcer Disease, etc. * Labs normal * Hepatitis Panel negative. C. difficile negative. * Patient still with significant pain and now with new onset blood in stool * CT scan images were reviewed. Hepatomegaly, splenomegaly. Periportal edema and inflammation. Likely hepatitis. ?Etiology. Gallbladder findings likely reactive to hepatitis. MRI also shows mild periportal edema. * EGD shows esophagitis and gastritis * HIDA scan with CCK to evaluate for cystic duct obstruction and biliary dyskinesia The above was discussed with the patient, nurse, GI and primary care team. Further recommendations will be made based on clinical course. Subjective 24 Hr Interval Summary Still complaining of right upper quadrant abdominal pain. Afebrile. Exam/Review of Systems Vital Signs Vitals Vital Signs Date Time Temp Pulse Resp B/P Pulse Ox O2 Delivery O2 Flow Rate FiO2 11/30/16 07:40 98.6 77 18 126/82 100 Room Air Intake and Output 11/29/16 11/29/16 11/30/16 15:00 23:00 07:00 Intake Total 200 ml 400 ml 1200 ml Balance 200 ml 400 ml 1200 ml Exam Free Text/Dictation GENERAL: Awake, alert, oriented x 3. No acute distress. SKIN: No jaundice HEENT: No scleral icterus CARDIOVASCULAR: S1S2, regular rate and rhythm RESPIRATORY: clear to auscultation bilaterally ABDOMEN: soft, non-distended, bowel sounds present. Tenderness to palpation in the epigastrium and right upper quadrant without any rebound or guarding. EXTREMITIES: no cyanosis, edema or clubbing Results Result Diagram: 11/30/1651111/30/16511 SUDARSHAN JIMENEZ MD November 30, 2016 11:13
[2016-11-30 13:22] LABS: ANA SCREEN POSITIVE (NEGATIVE); MITOCHONDRIAL TB NEGATIVE (NEGATIVE)
--- NOTE | 2016-11-30 20:55 | DS ---
DATE OF ADMISSION: 11/26/2016 DATE OF DISCHARGE: 11/30/2016 (Left against medical advice.) DIAGNOSES: 1. Acute abdominal pain. Unclear etiology. 2. Erosive esophagitis. 3. Gastritis. 4. Hematochezia. CONSULTATIONS: 1. Dr. Natasha Lamb, Gastroenterology. 2. Dr. Delfin Chavez, General Surgery. HOSPITAL COURSE: This is a 31-year-old female with no significant past medical history who was transferred from [facility] because of insurance reasons. The patient went to the ER at [facility] because of right upper quadrant abdominal pain for a 2 day period. The patient also had associated nausea and vomiting. The patient had no reported fevers or chills. The patient had a gallbladder ultrasound done at the referring hospital that apparently showed gallstones, gallbladder wall thickening. The patient was admitted to inpatient medical/surgical floor. A general surgery consult was called on this patient. The patient underwent a repeat ultrasound of the gallbladder here at [facility] that showed a 5 mm gallbladder polyp. Hence, the general surgeon recommended no surgical intervention, but monitor the patient and to resume the patient on a diet. Nevertheless, the patient continued to have significant abdominal pain that required frequent IV analgesics and high doses. The patient also had a bowel movement on 11/27/2016 that was noticeably blood stained. Hence, after talking with general surgeon, a gastroenterology consult was called. The patient's stool for OB showed positive blood. The patient was maintained on proton pump inhibitors. The patient underwent an esophagogastroduodenoscopy on 11/29/2016 that showed erosive esophagitis and gastritis. The patient also underwent a colonoscopy on 11/29/2006 that was essentially normal. Because of the patient's consistent pain, the patient also underwent a CT scan of the abdomen and pelvis on 11/27/2016 that showed mild abdominal and pelvic free fluid with mildly distended gallbladder and pericholecystic fluid with no evidence of calcified stones or definite gallbladder wall thickening to suggest acute cholecystitis. CT scan showed distal common bile duct dilated at 7 mm. There was also evidence of hepatosplenomegaly and a mildly heterogeneous liver with evidence of portal edema. The patient also underwent an abdominal MRI that was negative for any choledocholithiasis. However, the MRI showed very small bilateral pleural effusions and a small amount of ascites and a small amount of free fluid adjacent to the gallbladder with normal bile ducts and mild intrahepatic reportedly edema. The etiology of the CT scan and MRI findings was unclear. The patient's hepatitis panel was negative. The patient's antimitochondrial antibody and smooth muscle antibody were negative. The patient had a positive NAYAN and NAYAN titer. The patient continued to be complaining of abdominal pain and the patient was very unsatisfied with the care she was receiving. Hence, the patient decided to leave the hospital against medical advice. The patient was advised on the consequences of leaving the hospital against medical advice including the need to go to a different hospital and possible transfer to [facility] because of insurance reasons. Nevertheless, the patient wanted to leave the hospital against medical advice. There was a HIDA scan ordered because of significant abdominal pain on 11/30/2016. However, the patient did not want any more investigations or treatment at [facility]. The patient was also informed about grave consequences including possibility of while leaving [place]. Despite these, the patient wanted to leave the hospital against medical advice. No discharge planning was done and no discharge medications were given since the patient left the hospital against medical advice. PERTINENT LABORATORY AND DIAGNOSTIC DATA: 1. Esophagogastroduodenoscopy. Erosive esophagitis. Gastritis. 2. Colonoscopy. Normal colonic mucosa to cecum. 3. Abdominal ultrasound. A 5 mm gallbladder polyp. 4. CT scan of the abdomen and pelvis. Mild abdominal and pelvic free fluid. Mildly distended gallbladder. Pericholecystic fluid. No calcified gallstones or definite gallbladder wall thickening to suggest acute cholecystitis. Distal common bile duct is dilated at 7 mm consistent with distal obstruction. No calcified intraductal stone is identified. Hepatosplenomegaly. Liver is mildly heterogeneous with evidence for portal edema, which is nonspecific, and can be seen with hepatitis. Appendix not distinctly visualized. No focal right lower quadrant changes to suggest acute appendicitis. Gross unremarkable uterus. Ovaries not well characterized. No obstructive uropathy. 5. Abdominal MRI. Very small bilateral pleural effusions. A small amount of ascites, small amount of free fluid adjacent to the gallbladder. Normal bile ducts. Mild intrahepatic periportal edema. 6. Chest x-ray. No active disease. 7. Latest CBC: WBC 7.4, hemoglobin 12.5, hematocrit 37.3, platelet count 192. 8. Latest BMP: Sodium 137, potassium 3.4, chloride 102, carbon dioxide 28, anion gap 10, BUN less than 2, creatinine 0.56, glucose 109, calcium 8.6, phosphorus 4.5, magnesium 1.9. 9. NAYAN screen positive. 10. NAYAN titer 1:80. 11. NAYAN pattern homogeneous. 12. Antimitochondrial antibody negative. 13. Smooth muscle antibody negative. 14. Stool for C. diff negative. 15. Stool for OB positive. 16. Urine drug screen positive for opioids and cannabinoids. 17. Hemoglobin A1c 5.2. 18. Tumor markers negative. At this time I would like to thank all the consultants for seeing the patient and providing clinical recommendations. The case and management of this patient was fully discussed with Dr. Bill. ROSEMARIE BILL MD, AM/TAWNYA Conf#: [id number] DID#: [id number] CC: Jim Veras;*EndCC* MTDD
== END 2016-11-30 11:40 | disposition left against medical advice (07) | DRG 392 ==
LOC: E/R 00:31 → MS2 00:41
PROVIDERS: ADMIT Family Medicine; ATTEND Family Medicine
PROC: 0DBE8ZX Excision of Large Intestine, Via Natural or Artificial Opening Endoscopic, Diagnostic (ICD-10-PCS; principal; 2016-11-29 18:30)
PROC: 0DB68ZX Excision of Stomach, Via Natural or Artificial Opening Endoscopic, Diagnostic (ICD-10-PCS; 2016-11-29 18:30)
DX: R10.11 Right upper quadrant pain (principal); K22.10 Ulcer of esophagus without bleeding; K92.1 Melena; K29.70 Gastritis, unspecified, without bleeding; R16.2 Hepatomegaly with splenomegaly, not elsewhere classified; K64.8 Other hemorrhoids
CPT/HCPCS: 36415; 71010; 74177; 74181; 76700; 80053; 80307; 81001; 81003; 82105; 82270; 82378; 83036; 83690; 83735; 84100; 84439; 84443; 84484; 84703; 85025; 85610; 85730; 86038; 86255; 86301; 86704; 86709; 86803; 87075; 87340; 88305; 93005; 96365; 96366; 96375; 96376; C9113; J1170; J2060; J2270; J2405; J2543; J2765; J3480; J7030; J7070; Q9967